=== PATIENT | male | born 1935 | race Caucasian/White ===

== ENCOUNTER 2016-06-22 17:31 | Emergency (ER) | payer MEDICARE ==
[2016-06-22 17:45] VITALS: RESP 18; TEMP 98.2
[2016-06-22] MEDS ORDERED: Sodium Chloride 0.9% 500 ML IV ONE (18:18)
[2016-06-22] MEDS ORDERED: Atropine-Diphenoxylate 0.025-2.5 mg Tab PO STA (18:19)
--- NOTE | 2016-06-22 18:19 | C.PDOC ---
History Of Present Illness 80-year-old male, presents to the emergency department with complaints of non- bloody diarrhea today, that has now resolved. Pt notes multiple episodes of watery bowel movement, that resolved 3-4 hours ago. Associated symptoms include generalized abdominal pain, which was severe, and has now resolved. Currently complaining of bloating. No fever, nausea/vomiting. Pt with sick contacts at home w/ similar symptoms. DIARRHEA TODAY, NOW RESOLVED. MULT WATERY BM, RESOLVED X 3-4 HRS. +ASSOC GEN ABD PAIN "SEVERE" NOW RESOLVED. CURRENTLY CO BLOATING. NO FEVER, NV, SICK CONTACTS W SAME. PSH NEG EXAM ABD SOFT NT MILD DISTENTION NO R/G REMAINDER NEG Time Seen by Provider: 06/22/16 17:54 Chief Complaint (Nursing): Abdominal Pain History Per: Patient History/Exam Limitations: no limitations Onset/Duration Of Symptoms: Days Current Symptoms Are (Timing): Still Present Severity: Moderate Past Medical History Reviewed: Historical Data, Nursing Documentation, Vital Signs Vital Signs: Last Vital Signs Temp 98.2 F 06/22/16 17:41 Pulse 70 06/22/16 20:40 Resp 18 06/22/16 18:18 BP 130/63 06/22/16 20:40 Pulse Ox 98 06/22/16 20:40 - Medical History PMH: HTN, Hypothyroidism Family History: States: Unknown Family Hx - Social History Hx Alcohol Use: No Hx Substance Use: No - Immunization History Hx Tetanus Toxoid Vaccination: No Hx Influenza Vaccination: No Hx Pneumococcal Vaccination: Yes Review Of Systems Except As Marked, All Systems Reviewed And Found Negative. Constitutional: Negative for: Fever, Chills Respiratory: Negative for: Shortness of Breath Gastrointestinal: Positive for: Diarrhea. Negative for: Nausea, Vomiting Musculoskeletal: Negative for: Back Pain Skin: Negative for: Rash Neurological: Negative for: Weakness, Numbness Physical Exam - Physical Exam Appears: Non-toxic, No Acute Distress Skin: Warm, Dry, No Rash Head: Atraumatic, Normacephalic Eye(s): bilateral: Normal Inspection, PERRL Nose: Normal Oral Mucosa: Moist Lips: Normal Appearing Neck: Normal ROM Chest: Symmetrical Cardiovascular: Rhythm Regular Respiratory: No Accessory Muscle Use Gastrointestinal/Abdominal: Soft, No Tenderness, Distention, No Guarding, No Rebound Extremity: Normal ROM Neurological/Psych: Oriented x3, Normal Speech ED Course And Treatment - Laboratory Results Result Diagrams: 06/22/16 18:23 04 18:23 O2 Sat by Pulse Oximetry: 95 Progress - Data Reviewed Data Reviewed: Lab, Old records Disposition - Disposition Referrals: Rosalie Reeves, [Non-Staff] - Disposition: HOME/ ROUTINE Disposition Time: 20:30 Condition: GOOD Additional Instructions: Thank you for letting us take care of you today. You were treated for diarrhea. The emergency medical care you received today was directed at your acute symptoms. If you were prescribed any medication, please fill it and take as directed. It may take several days for your symptoms to resolve. Return to the Emergency Department if your symptoms worsen, do not improve, or if you have any other problems. Please contact your doctor or call one of the physicians/clinics you have been referred to that are listed on the Patient Visit Information form that is included in your discharge packet. Bring any paperwork you were given at discharge with you along with any medications you are taking to your follow up visit. Our treatment cannot replace ongoing medical care by a primary care provider (PCP) outside of the emergency department. Thank you for allowing the [facility] [employer] team to be part of your care today. Follow up with your doctor in 3-4 days to be re-evaluated. Instructions: Dehydration (ED), Acute Diarrhea (ED) - Clinical Impression Clinical Impression: Diarrhea - Scribe Statement The provider has reviewed the documentation as recorded by the Kim Underwood All medical record entries made by the Scribe were at my direction and personally dictated by me. I have reviewed the chart and agree that the record accurately reflects my personal performance of the history, physical exam, medical decision making, and the department course for this patient. I have also personally directed, reviewed, and agree with the discharge instructions and disposition. Physician Patient Turnover Patient Signed Over To: Jcarlos Yeh DO Handoff Comments: IRENE ZAVALA
[2016-06-22] MEDS ORDERED: Atropine-Diphenoxylate 0.025-2.5 mg Tab ONE (18:27)
[2016-06-22] MEDS ORDERED: Sodium Chloride 0.9% 1,000 ML ONE (18:27)
[2016-06-22 18:28] LABS: BASO % 0.1 % (0.0-2.0); EOS # 0.1 K/uL (0.0-0.7); EOS % 1.3 % (0.0-4.0); HEMATOCRIT 46.5 % (35.0-51.0); LYMPH # 2.9 K/uL (1.0-4.3); LYMPH % 25.3 % (20.0-40.0); MEAN CELL VOLUME 84.5 fL (80.0-94.0); MEAN CORPUSCULAR HEMOGLOBIN 26.9 pg (27.0-31.0); MEAN CORPUSCULAR HGB CONC 31.9 g/dL (33.0-37.0); MEAN PLATELET VOLUME 8.7 fL (7.2-11.7); MONO # 0.8 K/uL (0.0-0.8); MONO % 7.4 % (0.0-10.0); WHITE BLOOD COUNT 11.5 K/uL (4.8-10.8)
[2016-06-22 18:35] LABS: POTASSIUM 4.2 mmol/L (3.6-5.2)
[2016-06-22 20:41] VITALS: BP 130/63; PULSE 70
[2016-06-24 09:19] VITALS: O2SAT 95
== END 2016-06-22 20:37 | disposition home or self-care (01) ==
LOC: C.ER 17:31
DX: R19.7 Diarrhea, unspecified (principal)
CPT/HCPCS: 80048; 85025; 96360; 99284; J7040

== ENCOUNTER 2016-06-24 15:01 | Inpatient (IN) | payer MEDICARE ==
[2016-06-24] MEDS ORDERED: Sodium Chloride 0.9% 1,000 ML IV ONE (15:35)
[2016-06-24] MEDS ORDERED: Sodium Chloride 0.9% 1,000 ML ONE (16:11)
--- NOTE | 2016-06-24 16:19 | C.PDOC ---
History Of Present Illness 80-year-old male, presents to the emergency department with complaints of abdominal pain x5 days, that is associated with non-bloody diarrhea. Patient denies nausea/vomiting, fevers, or any other associated symptoms. Pt seen by PMD , who instructed him to come to the ED for further evaluation. No other complaints at this time. Time Seen by Provider: 06/24/16 15:31 Chief Complaint (Nursing): Abdominal Pain History Per: Patient History/Exam Limitations: no limitations Onset/Duration Of Symptoms: Days Current Symptoms Are (Timing): Still Present Severity: Moderate Past Medical History Reviewed: Historical Data, Nursing Documentation, Vital Signs Vital Signs: Last Vital Signs Temp 98.1 F 06/24/16 17:51 Pulse 100 H 06/24/16 17:51 Resp 20 06/24/16 17:51 BP 180/97 H 06/24/16 17:51 Pulse Ox 97 06/24/16 17:51 - Medical History PMH: HTN, Hypothyroidism Family History: States: Unknown Family Hx - Social History Hx Alcohol Use: No Hx Substance Use: No - Immunization History Hx Tetanus Toxoid Vaccination: No Hx Influenza Vaccination: No Hx Pneumococcal Vaccination: Yes Review Of Systems Except As Marked, All Systems Reviewed And Found Negative. Constitutional: Negative for: Fever, Chills Respiratory: Negative for: Shortness of Breath Gastrointestinal: Positive for: Abdominal Pain, Diarrhea. Negative for: Nausea , Vomiting Genitourinary: Negative for: Dysuria, Frequency Skin: Negative for: Rash Neurological: Negative for: Weakness, Numbness, Headache, Dizziness Physical Exam - Physical Exam Appears: Non-toxic, No Acute Distress Skin: Warm, Dry, No Rash Head: Atraumatic, Normacephalic Eye(s): bilateral: Normal Inspection, PERRL Nose: Normal Oral Mucosa: Moist Lips: Normal Appearing Cardiovascular: Rhythm Regular Respiratory: Normal Breath Sounds, No Accessory Muscle Use Gastrointestinal/Abdominal: Soft, No Tenderness, No Guarding, No Rebound Extremity: Normal ROM Neurological/Psych: Oriented x3, Normal Speech ED Course And Treatment - Laboratory Results Result Diagrams: 06/24/16 16:37 06/24/16 16:37 O2 Sat by Pulse Oximetry: 96 Progress Note: CT Abd/Pel. CMP, Lipase, TSH. IVF, Toradol. Blood Culture. Urinalysis. Reassess and Disposition. CT results evaluated. 18 F NG tube placed with Dr Metz. 200 CC removed initially. Case discussed with Dr Hernández agreed upon admission. and pt agreed with Dr Hutchison for surgery consult. Case dsicussed with vice president of engineering, will evaluate pt. Disposition - Disposition Disposition: HOSPITALIZED Disposition Time: 19:00 Condition: STABLE - Clinical Impression Clinical Impression: Small bowel obstruction - Scribe Statement The provider has reviewed the documentation as recorded by the Kim Underwood All medical record entries made by the Kmi were at my direction and personally dictated by me. I have reviewed the chart and agree that the record accurately reflects my personal performance of the history, physical exam, medical decision making, and the department course for this patient. I have also personally directed, reviewed, and agree with the discharge instructions and disposition.
[2016-06-24 16:42] LABS: BASO % 0.3 % (0.0-2.0); EOS # 0.1 K/uL (0.0-0.7); EOS % 1.1 % (0.0-4.0); HEMATOCRIT 40.1 % (35.0-51.0); LYMPH # 1.6 K/uL (1.0-4.3); LYMPH % 26.6 % (20.0-40.0); MEAN CELL VOLUME 84.3 fL (80.0-94.0); MEAN CORPUSCULAR HGB CONC 32.1 g/dL (33.0-37.0); MONO # 0.7 K/uL (0.0-0.8); MONO % 12.3 % (0.0-10.0); NRBC % 0.1 % (0.0-2.0); RED CELL DISTRIBUTION WIDTH 14.5 % (11.5-14.5); WHITE BLOOD COUNT 5.8 K/uL (4.8-10.8)
[2016-06-24 16:46] LABS: RBC URINE 9 /hpf (0-3); URINE BACTERIA RARE (<OCC); URINE BILIRUBIN NEGATIVE (NEGATIVE); URINE BLOOD 1+ (NEGATIVE); URINE CALCIUM OXALATE CRYSTALS FEW /hpf (<OCC); URINE COLOR Amber (YELLOW); URINE GLUCOSE (UA) NORMAL (Normal); URINE KETONE TRACE mg/dL (NEGATIVE); URINE LEUKOCYTE ESTERASE NEG Leu/uL (Negative); URINE PROTEIN 2+ mg/dL (NEGATIVE); WBC URINE 4 /hpf (0-5)
[2016-06-24 16:58] LABS: CHLORIDE 98 mmol/L (98-107); POTASSIUM 3.6 mmol/L (3.6-5.2); SODIUM 139 mmol/L (132-148)
[2016-06-24 17:00] LABS: GFR AFRICAN-AMERICAN > 60
[2016-06-24 17:01] LABS: ALB/GLOB RATIO 1.4 (1.0-2.1); ALKALINE PHOSPHATASE 53 U/L (38-126); ALT/SGPT 49 U/L (21-72); AST/SGOT 52 U/L (17-59); BILIRUBIN,TOTAL 1.1 mg/dL (0.2-1.3); BLOOD UREA NITROGEN 21 mg/dL (9-20); CARBON DIOXIDE 26 mmol/L (22-30); GLUCOSE,RANDOM 116 mg/dL (75-110); TOTAL PROTEIN 7.2 g/dL (6.3-8.3)
[2016-06-24 17:15] LABS: FREE T4 0.86 ng/dL (0.78-2.19)
[2016-06-24 17:29] LABS: THYROID STIMULATING HORMONE 1.14 mIU/L (0.46-4.68)
[2016-06-24] MEDS ORDERED: Iodixanol 320 MG/ML 100 ML BOTTLE IV ONE (17:42)
--- NOTE | 2016-06-24 18:32 | CT ---
PROCEDURE: CT Abdomen and Pelvis with contrast HISTORY: abd pain COMPARISON: None. TECHNIQUE: Contrast dose: 100 cc of Omnipaque Radiation dose: Total exam DLP = 1049 mGy-cm. This CT exam was performed using one or more of the following dose reduction techniques: Automated exposure control, adjustment of the mA and/or kV according to patient size, and/or use of iterative reconstruction technique. FINDINGS: LOWER THORAX: Unremarkable. LIVER: Unremarkable. No gross lesion or ductal dilatation. GALLBLADDER AND BILE DUCTS: Unremarkable. PANCREAS: Unremarkable. No gross lesion or ductal dilatation. SPLEEN: Unremarkable. ADRENALS: Unremarkable. No mass. KIDNEYS AND URETERS: Unremarkable. No hydronephrosis. No solid mass. VASCULATURE: Unremarkable. No aortic aneurysm. BOWEL: Numerous dilated loops of small bowel throughout the abdomen with collapsed colon consistent with high grade small bowel obstruction. APPENDIX: Normal appendix. PERITONEUM: Unremarkable. No free fluid. No free air. LYMPH NODES: Unremarkable. No enlarged lymph nodes. BLADDER: Unremarkable. REPRODUCTIVE: Brachytherapy seeds in prostate gland.. BONES: No acute fracture. OTHER FINDINGS: None. IMPRESSION: Numerous dilated loops of small bowel throughout the abdomen with collapsed colon consistent with high grade small bowel obstruction. Transition point not definitely identified. No abscess, ascites or pneumoperitoneum.
--- NOTE | 2016-06-24 20:04 | CP.PCM.CON ---
<Thomas Garcias - Last Filed: 06/24/16 19:54> History of Present Illness - History of Present Illness History of Present Illness: General Surgery Consult Re: SBO HPI: 80M presented to ED with 4 days of generalized abdominal pain and bloating associated with non bloody diarrhea. Had 1 small bout of emesis on Friday after some tea. Otherwise no N/V, F/C, SOB, chest pain. This is the first time this has happened to him. Also complains of abdominal distention. Pt has never had any abdominal surgeries but had seed radiation (possibley also external beam ) for prostate CA. He has never had a colonoscopy. PMH: HTN, Hypothyroid, Glaucoma, hard of hearing PSH: R knee surgery SH: No tobacco, EtOH, or drug use All: NKDA Meds: See MAR Review of Systems - Review of Systems All systems: reviewed and no additional remarkable complaints except (as per HPI ) Past Patient History - Past Social History Smoking Status: Never Smoked - CARDIAC Hx Hypertension: Yes - HEENT Hx Deafness: Yes (right meniere's) Hx Glaucoma: Yes Other/Comment: hearing aid - ENDOCRINE/METABOLIC Hx Hypothyroidism: Yes - GENITOURINARY/GYNECOLOGICAL Hx Prostate Cancer: Yes (with seed implant) - PSYCHIATRIC Hx Substance Use: No - SURGICAL HISTORY Hx Surgeries: Yes Other/Comment: cystoscopy, endoscopy - ANESTHESIA Hx Anesthesia: Yes Hx Anesthesia Reactions: No Meds Allergies/Adverse Reactions: Allergies Allergy/AdvReac Type Severity Reaction Status Date / Time No Known Allergies Allergy Unverified 06/24/16 15:08 Physical Exam - Constitutional Appears: Non-toxic, No Acute Distress - Head Exam Head Exam: ATRAUMATIC, NORMOCEPHALIC - Eye Exam Eye Exam: EOMI, PERRL - ENT Exam ENT Exam: Mucous Membranes Dry Additional comments: Trachea midline NGT in place - Respiratory Exam Respiratory Exam: NORMAL BREATHING PATTERN. absent: Respiratory Distress - Cardiovascular Exam Cardiovascular Exam: Tachycardia, +S1, +S2 - GI/Abdominal Exam GI & Abdominal Exam: Distended, Soft, Tenderness (moderate, generalised). absent: Firm, Guarding, Rebound, Rigid - Rectal Exam Rectal Exam: Deferred - Extremities Exam Extremities exam: Positive for: normal capillary refill. Negative for: calf tenderness, pedal edema - Back Exam Back exam: absent: CVA tenderness (L), CVA tenderness (R) - Neurological Exam Neurological exam: Alert, Oriented x3 - Psychiatric Exam Psychiatric exam: Normal Affect, Normal Mood - Skin Skin Exam: Dry, Warm Results - Vital Signs Recent Vital Signs: Last Vital Signs Temp 98.1 F 06/24/16 17:51 Pulse 100 H 06/24/16 18:50 Resp 18 06/24/16 18:50 BP 180/90 H 06/24/16 18:50 Pulse Ox 96 06/24/16 19:00 - Labs Result Diagrams: 06/24/16 16:37 06/24/16 16:37 - Imaging and Cardiology CT scan - abdomen Status: Image reviewed by me, Report reviewed by me Assessment & Plan - Assessment and Plan (Free Text) Assessment: 80M with SBO vs Ileus Plan: NGT in place, will check CXR IVF Analgesia Zofran Continue medical management, no immediate surgical intervention at this time. D/W Dr. Glenda Garcias PGY3 <Abiodun Doshi - Last Filed: 06/25/16 21:35> Meds - Medications Medications: Current Medications Potassium Chloride/Dextrose/Sod Cl (Potassium Chl 20 Meq In D5-1/2ns) 1,000 mls @ 125 mls/hr IV .Q8H [facility] Last Admin: 06/25/16 17:33 Dose: 125 mls/hr Ketorolac Tromethamine (Toradol) 30 mg IVP Q6 PRN PRN Reason: Pain, moderate (4-7) Metoprolol Tartrate (Lopressor) 50 mg PO Q12 [facility] Last Admin: 06/25/16 21:27 Dose: 50 mg Ondansetron HCl (Zofran Inj) 4 mg IVP Q4 PRN PRN Reason: Nausea/Vomiting Pneumococcal Polyvalent Vaccine (Pneumovax 23 Vaccine) 0.5 ml IM .ONCE ONE Stop: 06/26/16 10:01 Results - Vital Signs Recent Vital Signs: Last Vital Signs Temp 98.3 F 06/25/16 21:28 Pulse 86 06/25/16 21:28 Resp 20 06/25/16 15:00 BP 153/86 H 06/25/16 21:28 Pulse Ox 97 06/25/16 21:28 - Labs Result Diagrams: 06/25/16 07:35 06/25/16 07:35 Labs: Laboratory Results - last 24 hr 06/25/16 06/25/16 07:35 11:09 WBC 4.8 RBC 4.52 Hgb 12.2 Hct 38.0 MCV 84.0 MCH 26.9 L MCHC 32.0 L RDW 14.7 H Plt Count 253 MPV 8.2 Neut % (Auto) 66.3 Lymph % (Auto) 20.4 [place] % (Auto) 11.7 H Eos % (Auto) 1.4 Baso % (Auto) 0.2 Neut # 3.2 Lymph # 1.0 [place] # 0.6 Eos # 0.1 Baso # 0.0 Sodium 141 Potassium 4.0 Chloride 102 Carbon Dioxide 23 Anion Gap 20 BUN 21 H Creatinine 1.1 Est GFR ( Amer) > 60 Est GFR (Non-Af Amer) > 60 Random Glucose 102 Lactic Acid 1.4 Calcium 8.2 L Total Bilirubin 1.1 AST 33 ALT 46 Alkaline Phosphatase 47 Total Protein 6.5 Albumin 3.7 Globulin 2.8 Albumin/Globulin Ratio 1.3 Attending/Attestation - Attestation I have personally seen and examined this patient.: Yes I have fully participated in the care of the patient.: Yes I have reviewed all pertinent clinical information: Yes Notes (Text): 06/25/16 21:34 Pt was seen and examined at bedside on 06/25/2016 Agree with above note and assessment Pt with PSBO due to Enteritis/Colitis Serial abdominal exam OLLIE NICOLE NPO Plan d.w pt in detail We will f.u.
[2016-06-24] MEDS: Sodium Chloride 0.9% 1,000 ML IV SCH (21:14)
[2016-06-24] MEDS ORDERED: Metoprolol 1 mg/ml Inj IVP SCH (22:00)
[2016-06-25] MEDS: Sodium Chloride 0.9% 1,000 ML IV SCH (06:17)
[2016-06-25 07:57] LABS: BASO % 0.2 % (0.0-2.0); EOS # 0.1 K/uL (0.0-0.7); EOS % 1.4 % (0.0-4.0); LYMPH % 20.4 % (20.0-40.0); MEAN CORPUSCULAR HEMOGLOBIN 26.9 pg (27.0-31.0); MEAN PLATELET VOLUME 8.2 fL (7.2-11.7); MONO # 0.6 K/uL (0.0-0.8); MONO % 11.7 % (0.0-10.0); NRBC % 0.1 % (0.0-2.0); RED CELL DISTRIBUTION WIDTH 14.7 % (11.5-14.5); WHITE BLOOD COUNT 4.8 K/uL (4.8-10.8)
[2016-06-25 08:09] LABS: CHLORIDE 102 mmol/L (98-107); SODIUM 141 mmol/L (132-148)
[2016-06-25 08:11] LABS: GFR AFRICAN-AMERICAN > 60
[2016-06-25 08:12] LABS: ALB/GLOB RATIO 1.3 (1.0-2.1); ALKALINE PHOSPHATASE 47 U/L (38-126); ALT/SGPT 46 U/L (21-72); AST/SGOT 33 U/L (17-59); BILIRUBIN,TOTAL 1.1 mg/dL (0.2-1.3); BLOOD UREA NITROGEN 21 mg/dL (9-20); CARBON DIOXIDE 23 mmol/L (22-30); GLUCOSE,RANDOM 102 mg/dL (75-110); TOTAL PROTEIN 6.5 g/dL (6.3-8.3)
[2016-06-25 08:13] LABS: CALCIUM 8.2 mg/dl (8.6-10.4)
--- NOTE | 2016-06-25 08:43 | RAD ---
HISTORY: NGT placement COMPARISON: No prior. FINDINGS: LUNGS: NG tube extending into the stomach. Dense linear atelectasis at the left lung base. Prominent patchy increased markings at both lung bases. Small bilateral pleural effusions. Venous congestion. PLEURA: As above. CARDIOVASCULAR: Cardiomegaly. OSSEOUS STRUCTURES: Degenerative changes in the spine with paravertebral osteophytes. VISUALIZED UPPER ABDOMEN: Normal. OTHER FINDINGS: None. IMPRESSION: NG tube extending into the stomach. Dense linear atelectasis at the left lung base. Prominent patchy increased markings at both lung bases. Small bilateral pleural effusions. Venous congestion.
--- NOTE | 2016-06-25 10:39 | CP.PCM.PN ---
<Jennifer Weathers - Last Filed: 06/25/16 16:13> Subjective - Date & Time of Evaluation Date of Evaluation: 06/25/16 Time of Evaluation: 07:00 - Subjective Subjective: GENERAL SURGERY PROGRESS NOTE FOR DR. DOSHI Patient seen and examined at bedside. He is passing flatus and his last BM was yesterday. NG tube in place on suction. He is NPO and denies nausea or vomiting. Has mild diffuse abdominal pain. Objective - Vital Signs/Intake and Output Vital Signs (last 24 hours): Temp Pulse Resp BP Pulse Ox 98.5 F 70 20 156/72 H 96 06/25/16 07:42 06/25/16 07:42 06/25/16 07:42 06/25/16 07:42 06/25/16 07:42 Intake and Output: 06/25/16 06/25/16 06:59 18:59 Intake Total 1000 Output Total 300 Balance 700 - Medications Medications: Current Medications Sodium Chloride (Sodium Chloride 0.9%) 1,000 mls @ 120 mls/hr IV .Q8H20M [facility] Last Admin: 06/25/16 06:17 Dose: 120 mls/hr Ketorolac Tromethamine (Toradol) 30 mg IVP Q6 PRN PRN Reason: Pain, moderate (4-7) Metoprolol Tartrate (Lopressor) 50 mg PO Q12 [facility] Last Admin: 06/25/16 10:05 Dose: 50 mg Ondansetron HCl (Zofran Inj) 4 mg IVP Q4 PRN PRN Reason: Nausea/Vomiting Pneumococcal Polyvalent Vaccine (Pneumovax 23 Vaccine) 0.5 ml IM .ONCE ONE Stop: 06/26/16 10:01 - Labs Labs: 06/25/16 07:35 06/25/16 07:35 - Constitutional Appears: Non-toxic, No Acute Distress - Head Exam Head Exam: ATRAUMATIC, NORMAL INSPECTION - Eye Exam Eye Exam: EOMI, Normal appearance - Respiratory Exam Respiratory Exam: NORMAL BREATHING PATTERN. absent: Respiratory Distress - Cardiovascular Exam Cardiovascular Exam: +S1, +S2 - GI/Abdominal Exam GI & Abdominal Exam: Distended, Soft, Tenderness (mild tenderness periumbilical ). absent: Firm, Guarding, Rigid, Rebound - Neurological Exam Neurological Exam: Alert, Awake, Oriented x3 - Psychiatric Exam Psychiatric exam: Normal Affect, Normal Mood - Skin Skin Exam: Dry, Normal Color, Warm Assessment and Plan - Assessment and Plan (Free Text) Assessment: 80yo M with SBO vs Ileus - Afebrile, tachycardia yesterday now resolved - NG tube in place on suction with 300cc output since insertion yesterday - Passing flatus - Will continue conservative management, no urgent surgical intervention needed at this time - Lactic acid WNL - Discussed plan with Dr. Glenda Weathers PGY-2 <Abiodun Doshi - Last Filed: 06/25/16 21:36> Objective - Vital Signs/Intake and Output Vital Signs (last 24 hours): Temp Pulse Resp BP Pulse Ox 98.3 F 86 20 153/86 H 97 06/25/16 21:28 06/25/16 21:28 06/25/16 15:00 06/25/16 21:28 06/25/16 21:28 Intake and Output: 06/25/16 06/26/16 18:59 06:59 Intake Total 1020 Output Total 650 Balance 370 - Medications Medications: Current Medications Potassium Chloride/Dextrose/Sod Cl (Potassium Chl 20 Meq In D5-1/2ns) 1,000 mls @ 125 mls/hr IV .Q8H [facility] Last Admin: 06/25/16 17:33 Dose: 125 mls/hr Ketorolac Tromethamine (Toradol) 30 mg IVP Q6 PRN PRN Reason: Pain, moderate (4-7) Metoprolol Tartrate (Lopressor) 50 mg PO Q12 [facility] Last Admin: 06/25/16 21:27 Dose: 50 mg Ondansetron HCl (Zofran Inj) 4 mg IVP Q4 PRN PRN Reason: Nausea/Vomiting Pneumococcal Polyvalent Vaccine (Pneumovax 23 Vaccine) 0.5 ml IM .ONCE ONE Stop: 06/26/16 10:01 - Labs Labs: 06/25/16 07:35 06/25/16 07:35 Attending/Attestation - Attestation I have personally seen and examined this patient.: Yes I have fully participated in the care of the patient.: Yes I have reviewed all pertinent clinical information, including history, physical exam and plan: Yes Notes (Text): 06/25/16 21:35 Pt was seen and examined at bedside on 06/25/2016 Agree with above note and assessment Pt with PSBO due to Enteritis/Colitis Serial abdominal exam NG to COREY NPO
--- NOTE | 2016-06-25 10:55 | CP.PCM.HP ---
History of Present Illness - History of Present Illness History of Present Illness: 80 years old male complaining of abdominal distention and diffuse abdominal pain with poor appetite, nausea for the past 4 days. He was seen in the ED at [facility] 2 days ago for the same complaints, vomiting x1, and diarrhea. He denies any fever, any bloody stools. This time, a CT scan of the abdomen reveals a small bowel obstruction. An NGT tube was inserted and put in low intermittent suction. Present on Admission - Present on Admission Any Indicators Present on Admission: No Review of Systems - Gastrointestinal Gastrointestinal: Abdominal Pain, Bloating, Diarrhea, Nausea, Vomiting Past Patient History - Infectious Disease Hx of Infectious Diseases: None - Tetanus Immunizations Tetanus Immunization: Unknown - Past Medical History & Family History Past Medical History?: Yes - Past Social History Smoking Status: Never Smoked Alcohol: None Drugs: Denies Home Situation {Lives}: With Family Domestic Violence: Negative - CARDIAC Hx Cardiac Disorders: Yes Hx Hypertension: Yes - PULMONARY Hx Respiratory Disorders: No - NEUROLOGICAL Hx Neurological Disorder: No - HEENT Hx HEENT Problems: Yes Hx Deafness: Yes (right meniere's) Hx Glaucoma: Yes Other/Comment: hearing aid - RENAL Hx Chronic Kidney Disease: No - ENDOCRINE/METABOLIC Hx Endocrine Disorders: Yes Hx Hypothyroidism: Yes - HEMATOLOGICAL/ONCOLOGICAL Hx Blood Disorders: No - INTEGUMENTARY Hx Dermatological Problems: No - MUSCULOSKELETAL/RHEUMATOLOGICAL Hx Musculoskeletal Disorders: Yes Hx Falls: No Other/Comment: knee problem - GASTROINTESTINAL Hx Gastrointestinal Disorders: No - GENITOURINARY/GYNECOLOGICAL Hx Genitourinary Disorders: Yes Hx Prostate Cancer: Yes ( about 10years ago.) - PSYCHIATRIC Hx Psychophysiologic Disorder: No Hx Substance Use: No - SURGICAL HISTORY Hx Surgeries: Yes Other/Comment: cystoscopy, endoscopy - ANESTHESIA Hx Anesthesia: Yes Hx Anesthesia Reactions: No Hx Malignant Hyperthermia: No Has any member of the family had a problem w/ anesthesia?: No Meds Allergies/Adverse Reactions: Allergies Allergy/AdvReac Type Severity Reaction Status Date / Time No Known Allergies Allergy Unverified 06/24/16 15:08 Physical Exam - Constitutional Appears: No Acute Distress - Head Exam Head Exam: NORMAL INSPECTION - Eye Exam Eye Exam: Normal appearance - ENT Exam ENT Exam: Normal Exam - Neck Exam Neck exam: Positive for: Normal Inspection - Respiratory Exam Respiratory Exam: Clear to Auscultation Bilateral - Cardiovascular Exam Cardiovascular Exam: REGULAR RHYTHM - GI/Abdominal Exam GI & Abdominal Exam: Distended, Hypoactive Bowel Sounds, Rebound, Tenderness - Rectal Exam Rectal Exam: Deferred - Exam Exam: NORMAL INSPECTION - Extremities Exam Extremities exam: Positive for: normal inspection - Back Exam Back exam: NORMAL INSPECTION - Neurological Exam Neurological exam: Alert, Normal Gait, Oriented x3, Reflexes Normal - Psychiatric Exam Psychiatric exam: Anxious - Skin Skin Exam: Dry, Intact, Normal Color, Warm Results - Vital Signs Recent Vital Signs: Last Vital Signs Temp 98.5 F 06/25/16 07:42 Pulse 70 06/25/16 07:42 Resp 20 06/25/16 07:42 BP 156/72 H 06/25/16 07:42 Pulse Ox 96 06/25/16 07:42 - Labs Result Diagrams: 06/25/16 07:35 06/25/16 07:35 Labs: Laboratory Results - last 24 hr 06/25/16 07:35 WBC 4.8 RBC 4.52 Hgb 12.2 Hct 38.0 MCV 84.0 MCH 26.9 L MCHC 32.0 L RDW 14.7 H Plt Count 253 MPV 8.2 Neut % (Auto) 66.3 Lymph % (Auto) 20.4 [place] % (Auto) 11.7 H Eos % (Auto) 1.4 Baso % (Auto) 0.2 Neut # 3.2 Lymph # 1.0 [place] # 0.6 Eos # 0.1 Baso # 0.0 Sodium 141 Potassium 4.0 Chloride 102 Carbon Dioxide 23 Anion Gap 20 BUN 21 H Creatinine 1.1 Est GFR ( Amer) > 60 Est GFR (Non-Af Amer) > 60 Random Glucose 102 Calcium 8.2 L Total Bilirubin 1.1 AST 33 ALT 46 Alkaline Phosphatase 47 Total Protein 6.5 Albumin 3.7 Globulin 2.8 Albumin/Globulin Ratio 1.3 Assessment & Plan (1) Small bowel obstruction Assessment and Plan: Surgical evaluation. To continue NGT suction. Status: Acute (2) Uncontrolled hypertension Assessment and Plan: To continue Metoprolol 50 mg BID through NGT. Status: Acute Decision To Admit - Pt Status Changed To: Hospital Disposition Of: Inpatient - Admit Certification Admit to Inpatient:: After my assessment, the patient will require hospitalization for at least two midnights. This is because of the severity of symptoms shown, intensity of services needed, and/or the medical risk in this patient being treated as an outpatient. - InPatient: Physician Admission Certification:: After my assessments, the patient requires hospitalization for at least 2 midnights. - . Bed Request Type: Regular Admitting Physician: Jcarlos Hernández
[2016-06-25] MEDS ORDERED: Potassium Ch 20mEq in D5-1/2NS 1,000 ML IV SCH (17:15)
[2016-06-25] MEDS ORDERED: Dextrose 5%/0.45% NS 1,000 ML IV SCH (17:30)
[2016-06-25] MEDS: Potassium Ch 20mEq in D5-1/2NS 1,000 ML IV SCH (17:33)
--- NOTE | 2016-06-25 17:36 | CP.PCM.PN ---
Subjective - Date & Time of Evaluation Date of Evaluation: 06/25/16 Time of Evaluation: 17:32 - Subjective Subjective: Patient still with bilateral lower quadrant abdominal pain. Passed flatuses but no solid stools. NGT draining about 1500 ml of greenish liquid. CBC and CMP are WNL. Review of CT scan of the abdomen and pelvis reveals a narrowing of the ileum. Will seek an evaluation with GI ( Dr Minor). Dr Minor advised to order an obstructive series to assess the SBO. Objective - Vital Signs/Intake and Output Vital Signs (last 24 hours): Temp Pulse Resp BP Pulse Ox 98.2 F 91 H 20 173/89 H 95 06/25/16 15:00 06/25/16 15:00 06/25/16 15:00 06/25/16 15:00 06/25/16 15:00 Intake and Output: 06/25/16 06/25/16 06:59 18:59 Intake Total 1000 1020 Output Total 300 650 Balance 700 370 - Medications Medications: Current Medications Potassium Chloride/Dextrose/Sod Cl (Potassium Chl 20 Meq In D5-1/2ns) 1,000 mls @ 125 mls/hr IV .Q8H [facility] Ketorolac Tromethamine (Toradol) 30 mg IVP Q6 PRN PRN Reason: Pain, moderate (4-7) Metoprolol Tartrate (Lopressor) 50 mg PO Q12 [facility] Last Admin: 06/25/16 10:05 Dose: 50 mg Ondansetron HCl (Zofran Inj) 4 mg IVP Q4 PRN PRN Reason: Nausea/Vomiting Pneumococcal Polyvalent Vaccine (Pneumovax 23 Vaccine) 0.5 ml IM .ONCE ONE Stop: 06/26/16 10:01 - Labs Labs: 06/25/16 07:35 06/25/16 07:35 - Constitutional Appears: No Acute Distress - Head Exam Head Exam: NORMAL INSPECTION - Eye Exam Eye Exam: Normal appearance - ENT Exam ENT Exam: Normal Exam - Neck Exam Neck Exam: Normal Inspection - Respiratory Exam Additional comments: Few rhonchi both bases. - GI/Abdominal Exam GI & Abdominal Exam: Distended, Tenderness, Hypoactive Bowel Sounds Additional comments: Mild tenderness of the RLQ and LLQ. No rebound. - Extremities Exam Extremities Exam: Normal Inspection - Back Exam Back Exam: NORMAL INSPECTION - Neurological Exam Neurological Exam: Alert, Awake, Oriented x3 - Psychiatric Exam Psychiatric exam: Anxious - Skin Skin Exam: Dry, Intact, Normal Color, Warm Assessment and Plan (1) Small bowel obstruction Assessment & Plan: Better with flatus. To order an obstructive series. Status: Acute (2) Uncontrolled hypertension Assessment & Plan: To continue Metoprolol 50 mg via NGT BID. Status: Acute
[2016-06-26] MEDS: Potassium Ch 20mEq in D5-1/2NS 1,000 ML IV SCH ×4 (01:03→20:51)
[2016-06-26 07:30] LABS: BASO % 0.1 % (0.0-2.0); EOS # 0.1 K/uL (0.0-0.7); HEMATOCRIT 38.5 % (35.0-51.0); LYMPH # 1.7 K/uL (1.0-4.3); LYMPH % 27.4 % (20.0-40.0); MEAN CELL VOLUME 84.3 fL (80.0-94.0); MEAN CORPUSCULAR HEMOGLOBIN 27.3 pg (27.0-31.0); MEAN CORPUSCULAR HGB CONC 32.4 g/dL (33.0-37.0); MEAN PLATELET VOLUME 8.2 fL (7.2-11.7); MONO # 0.7 K/uL (0.0-0.8); RED CELL DISTRIBUTION WIDTH 14.4 % (11.5-14.5)
[2016-06-26 07:51] LABS: CHLORIDE 102 mmol/L (98-107)
[2016-06-26 07:52] LABS: POTASSIUM 3.6 mmol/L (3.6-5.2); SODIUM 140 mmol/L (132-148)
[2016-06-26 07:56] LABS: ALB/GLOB RATIO 1.3 (1.0-2.1); ALKALINE PHOSPHATASE 53 U/L (38-126); ALT/SGPT 41 U/L (21-72); AST/SGOT 34 U/L (17-59); BILIRUBIN,TOTAL 1.2 mg/dL (0.2-1.3); BLOOD UREA NITROGEN 17 mg/dL (9-20); CALCIUM 8.1 mg/dl (8.6-10.4); CARBON DIOXIDE 22 mmol/L (22-30); GFR AFRICAN-AMERICAN > 60; GLUCOSE,RANDOM 123 mg/dL (75-110); TOTAL PROTEIN 6.8 g/dL (6.3-8.3)
[2016-06-26] MEDS ORDERED: Potassium Chloride 20 mEq 100 ML IVPB ONE (08:00)
[2016-06-26] MEDS ORDERED: Pneumococcal 23-Valent Vaccine IM ONE (10:00)
[2016-06-26] MEDS: Potassium Chloride 10 mEq 100 ML IVPB SCH ×2 (10:00→11:19)
--- NOTE | 2016-06-26 10:29 | CP.PCM.PN ---
<Jennifer Weathers - Last Filed: 06/26/16 16:22> Subjective - Date & Time of Evaluation Date of Evaluation: 06/26/16 Time of Evaluation: 07:00 - Subjective Subjective: GENERAL SURGERY PROGRESS NOTE FOR DR. DOSHI Patient seen and examined at bedside. He has not passed flatus or had a BM. NG tube in place on suction. There were 350cc output from the NG tube over the overnight houseperson per the nurse. He is NPO and denies nausea or vomiting. Has mild diffuse abdominal pain. He also reports back pain. He has not been ambulating. He was strongly encouraged to walk as this will help resolve his obstruction. He is able to be disconnected from suction while he walks and then hooked back up once he is back in bed. Objective - Vital Signs/Intake and Output Vital Signs (last 24 hours): Temp Pulse Resp BP Pulse Ox 98.2 F 78 20 180/95 H 96 06/26/16 07:26 06/26/16 07:26 06/26/16 07:26 06/26/16 07:26 06/26/16 07:26 Intake and Output: 06/26/16 06/26/16 06:59 18:59 Intake Total 1000 Output Total 1150 Balance -150 - Medications Medications: Current Medications Potassium Chloride/Dextrose/Sod Cl (Potassium Chl 20 Meq In D5-1/2ns) 1,000 mls @ 125 mls/hr IV .Q8H [facility] Last Admin: 06/26/16 01:03 Dose: 125 mls/hr Potassium Chloride (Potassium Chloride 10 Meq/100 Ml) 100 mls @ 100 mls/hr IVPB Q1 [facility] Stop: 06/26/16 11:59 Ketorolac Tromethamine (Toradol) 30 mg IVP Q6 PRN PRN Reason: Pain, moderate (4-7) Last Admin: 06/26/16 00:59 Dose: 30 mg Metoprolol Tartrate (Lopressor) 50 mg PO Q12 [facility] Last Admin: 06/25/16 21:27 Dose: 50 mg Ondansetron HCl (Zofran Inj) 4 mg IVP Q4 PRN PRN Reason: Nausea/Vomiting - Labs Labs: 06/26/16 07:10 06/26/16 07:10 - Constitutional Appears: Non-toxic, No Acute Distress - Head Exam Head Exam: ATRAUMATIC, NORMAL INSPECTION - Eye Exam Eye Exam: EOMI, Normal appearance - Respiratory Exam Respiratory Exam: NORMAL BREATHING PATTERN. absent: Respiratory Distress - Cardiovascular Exam Cardiovascular Exam: +S1, +S2 - GI/Abdominal Exam GI & Abdominal Exam: Distended, Soft, Tenderness (mild tenderness diffusely). absent: Firm, Guarding, Rigid, Rebound Additional comments: NG tube in place with 350cc output over overnight houseperson with 900cc output over past 24 hours - Neurological Exam Neurological Exam: Alert, Awake - Psychiatric Exam Psychiatric exam: Normal Affect, Normal Mood - Skin Skin Exam: Dry, Warm Assessment and Plan - Assessment and Plan (Free Text) Assessment: 80yo M with partial SBO secondary to enteritis/colitis - Afebrile, VSS - NG tube in place on suction with 350cc output over overnight houseperson and 900cc total over past 24 hours - Continue NG tube on low intermittent suction - Passed flatus yesterday - GI consulted - Obstructive series done, shows SBO - Ordered tap water enema - Want to keep K above 4, gave 2 runs of IV KCl as K was 3.6 today - Discussed plan with Dr. Glenda Weathers PGY-2 <Abiodun Doshi - Last Filed: 06/26/16 17:54> Objective - Vital Signs/Intake and Output Vital Signs (last 24 hours): Temp Pulse Resp BP Pulse Ox 97.8 F 70 21 199/79 H 95 06/26/16 15:00 06/26/16 15:00 06/26/16 15:00 06/26/16 15:00 06/26/16 15:00 Intake and Output: 06/26/16 06/26/16 06:59 18:59 Intake Total 1000 1020 Output Total 1150 300 Balance -150 720 - Medications Medications: Current Medications Potassium Chloride/Dextrose/Sod Cl (Potassium Chl 20 Meq In D5-1/2ns) 1,000 mls @ 125 mls/hr IV .Q8H [facility] Last Admin: 06/26/16 13:45 Dose: Not Given Ketorolac Tromethamine (Toradol) 30 mg IVP Q6 PRN PRN Reason: Pain, moderate (4-7) Last Admin: 06/26/16 00:59 Dose: 30 mg Metoprolol Tartrate (Lopressor) 50 mg PO Q12 [facility] Last Admin: 06/26/16 11:15 Dose: 50 mg Ondansetron HCl (Zofran Inj) 4 mg IVP Q4 PRN PRN Reason: Nausea/Vomiting - Labs Labs: 06/26/16 07:10 06/26/16 07:10 Attending/Attestation - Attestation I have personally seen and examined this patient.: Yes I have fully participated in the care of the patient.: Yes I have reviewed all pertinent clinical information, including history, physical exam and plan: Yes Notes (Text): 06/26/16 17:53 06/24/16 21:16 Pt was seen and examined at bedside on 06/26/16 Agree with above note and assessment Pt with PSBO Observation with Serial abdominal exam Enema Q hours Repeat AXR in am Plan victoriaw pt in detail.
--- NOTE | 2016-06-26 12:55 | RAD ---
PROCEDURE: Radiographs of the chest and abdomen (obstructive series) HISTORY: Small bowel obstruction F/U COMPARISON: CT abdomen and pelvis from 06/24/2016 TECHNIQUE: AP radiograph of the chest, with upright and supine radiographs of the abdomen. FINDINGS: The nasogastric tube terminates in the stomach. CHEST: Lungs: There is bibasilar atelectasis/ scarring and discoid atelectasis/ scarring in the left mid lung. Cardiovascular: Normal size heart. Atherosclerotic aortic arch calcifications are present. No pulmonary vascular congestion. Pleura: No pleural fluid. No pneumothorax. Other findings: None. ABDOMEN AND PELVIS: Bowel: There are differential air-fluid levels in the abdomen and persistent distention of the small bowel loops. Free air: None. Bones: Unremarkable. Other findings: None. IMPRESSION: Persistent dilatation of the small bowel loops with differential as fluid levels consistent with acute small bowel obstruction.
--- NOTE | 2016-06-26 17:51 | CP.PCM.CON ---
History of Present Illness - History of Present Illness History of Present Illness: This is a 80 year old man with abdominal distention and pain. Patient was admitted 06/24/2016 with a four day history of diffuse, vague abdominal pain, distention of the abdomen and diarrhea. He was also nauseated and vomited once. He denies having fever or rectal bleeding. He was seen once in the ER and released; on the second ER visit, a CT scan was obtained which showed a small bowel obstruction. He denies having previous abdominal surgery. An NG tube was inserted, but the abdominal distention has not improved in the past 24 hours. Review of Systems - Gastrointestinal Gastrointestinal: Abdominal Pain, Diarrhea, Nausea, Vomiting. absent: Dysphagia , Heartburn, Hematochezia Past Patient History - Infectious Disease Hx of Infectious Diseases: None - Tetanus Immunizations Tetanus Immunization: Unknown - Past Medical History & Family History Past Medical History?: Yes - Past Social History Smoking Status: Never Smoked Alcohol: None Drugs: Denies Home Situation {Lives}: With Family Domestic Violence: Negative - CARDIAC Hx Hypertension: Yes - PULMONARY Hx Respiratory Disorders: No - NEUROLOGICAL Hx Neurological Disorder: No - HEENT Hx HEENT Problems: Yes Hx Deafness: Yes (right meniere's) Hx Glaucoma: Yes Other/Comment: hearing aid - RENAL Hx Chronic Kidney Disease: No - ENDOCRINE/METABOLIC Hx Hypothyroidism: Yes - HEMATOLOGICAL/ONCOLOGICAL Hx Blood Disorders: No - INTEGUMENTARY Hx Dermatological Problems: No - MUSCULOSKELETAL/RHEUMATOLOGICAL Hx Musculoskeletal Disorders: Yes Hx Falls: No Other/Comment: knee problem - GASTROINTESTINAL Hx Gastrointestinal Disorders: No - GENITOURINARY/GYNECOLOGICAL Hx Genitourinary Disorders: Yes Hx Prostate Cancer: Yes ( about 10years ago.) - PSYCHIATRIC Hx Psychophysiologic Disorder: No Hx Substance Use: No - SURGICAL HISTORY Hx Surgeries: Yes Other/Comment: cystoscopy, endoscopy - ANESTHESIA Hx Anesthesia: Yes Hx Anesthesia Reactions: No Hx Malignant Hyperthermia: No Has any member of the family had a problem w/ anesthesia?: No Meds Allergies/Adverse Reactions: Allergies Allergy/AdvReac Type Severity Reaction Status Date / Time No Known Allergies Allergy Unverified 06/24/16 15:08 - Medications Medications: Current Medications Potassium Chloride/Dextrose/Sod Cl (Potassium Chl 20 Meq In D5-1/2ns) 1,000 mls @ 125 mls/hr IV .Q8H [facility] Last Admin: 06/26/16 13:45 Dose: Not Given Ketorolac Tromethamine (Toradol) 30 mg IVP Q6 PRN PRN Reason: Pain, moderate (4-7) Last Admin: 06/26/16 00:59 Dose: 30 mg Metoprolol Tartrate (Lopressor) 50 mg PO Q12 [facility] Last Admin: 06/26/16 11:15 Dose: 50 mg Ondansetron HCl (Zofran Inj) 4 mg IVP Q4 PRN PRN Reason: Nausea/Vomiting Physical Exam - Constitutional Appears: No Acute Distress - Head Exam Head Exam: ATRAUMATIC - Eye Exam Eye Exam: EOMI, PERRL - Neck Exam Neck exam: Negative for: Lymphadenopathy, Thyromegaly - Respiratory Exam Respiratory Exam: NORMAL BREATHING PATTERN. absent: Rales, Rhonchi, Wheezes - Cardiovascular Exam Cardiovascular Exam: REGULAR RHYTHM, +S1, +S2. absent: Gallop, Rubs, Systolic Murmur - GI/Abdominal Exam GI & Abdominal Exam: Distended, Hypoactive Bowel Sounds, Soft. absent: Mass, Organomegaly, Tenderness - Rectal Exam Rectal Exam: Deferred - Extremities Exam Extremities exam: Negative for: calf tenderness, pedal edema Results - Vital Signs Recent Vital Signs: Last Vital Signs Temp 97.8 F 06/26/16 15:00 Pulse 70 06/26/16 15:00 Resp 21 06/26/16 15:00 BP 199/79 H 06/26/16 15:00 Pulse Ox 95 06/26/16 15:00 - Labs Result Diagrams: 06/26/16 07:10 06/26/16 07:10 Labs: Laboratory Results - last 24 hr 06/26/16 07:10 WBC 6.0 RBC 4.57 Hgb 12.5 Hct 38.5 MCV 84.3 MCH 27.3 MCHC 32.4 L RDW 14.4 Plt Count 265 MPV 8.2 Neut % (Auto) 59.5 Lymph % (Auto) 27.4 Isabella % (Auto) 11.0 H Eos % (Auto) 2.0 Baso % (Auto) 0.1 Neut # 3.6 Lymph # 1.7 Isabella # 0.7 Eos # 0.1 Baso # 0.0 Sodium 140 Potassium 3.6 Chloride 102 Carbon Dioxide 22 Anion Gap 20 BUN 17 Creatinine 1.0 Est GFR ( Amer) > 60 Est GFR (Non-Af Amer) > 60 Random Glucose 123 H Calcium 8.1 L Total Bilirubin 1.2 AST 34 ALT 41 Alkaline Phosphatase 53 Total Protein 6.8 Albumin 3.9 Globulin 2.9 Albumin/Globulin Ratio 1.3 Assessment & Plan (1) Small bowel obstruction Assessment and Plan: Patient has SBO which has not improved appreciably since admission despite NG suction. Recommend surgery re-evaluation. Status: Acute
[2016-06-26] MEDS ORDERED: Ciprofloxacin 400mg/200ml D5W 200 ML IVPB SCH (18:30)
[2016-06-26] MEDS: Ciprofloxacin 400mg/200ml D5W 200 ML IVPB SCH (20:47)
--- NOTE | 2016-06-26 21:12 | CP.PCM.PN ---
Subjective - Date & Time of Evaluation Date of Evaluation: 06/26/16 Time of Evaluation: 21:10 - Subjective Subjective: Patient had a large BM this evening after an enema. Feels better, with less abdominal pain. Has been passing flatus after the BM. Will receive another enema in one hour. Will repeat obstructive series in AM. Objective - Vital Signs/Intake and Output Vital Signs (last 24 hours): Temp Pulse Resp BP Pulse Ox 97.8 F 70 21 199/79 H 95 06/26/16 15:00 06/26/16 15:00 06/26/16 15:00 06/26/16 15:00 06/26/16 15:00 Intake and Output: 06/26/16 06/27/16 18:59 06:59 Intake Total 1020 Output Total 300 Balance 720 - Medications Medications: Current Medications Potassium Chloride/Dextrose/Sod Cl (Potassium Chl 20 Meq In D5-1/2ns) 1,000 mls @ 125 mls/hr IV .Q8H [facility] Last Admin: 06/26/16 20:51 Dose: Not Given Metronidazole (Flagyl) 100 mls @ 100 mls/hr IVPB Q8 [facility] Ciprofloxacin (Cipro 400mg/200ml Dsw) 200 mls @ 133 mls/hr IVPB Q12H [facility] Last Admin: 06/26/16 20:47 Dose: 133 mls/hr Metoprolol Tartrate (Lopressor) 50 mg PO Q12 [facility] Last Admin: 06/26/16 11:15 Dose: 50 mg Ondansetron HCl (Zofran Inj) 4 mg IVP Q4 PRN PRN Reason: Nausea/Vomiting Sodium Phosphate (Fleet Enema) 135 ml AL Q8 [facility] - Labs Labs: 06/26/16 07:10 06/26/16 07:10 - Constitutional Appears: No Acute Distress - Head Exam Head Exam: NORMOCEPHALIC - Eye Exam Eye Exam: Normal appearance - ENT Exam ENT Exam: Normal Exam - Neck Exam Neck Exam: Normal Inspection - Respiratory Exam Respiratory Exam: Rhonchi Additional comments: Few rhonchi both bases. - Cardiovascular Exam Cardiovascular Exam: REGULAR RHYTHM - GI/Abdominal Exam GI & Abdominal Exam: Distended, Normal Bowel Sounds Additional comments: RLLQ and LLQ of the abdomen less tender now. - Extremities Exam Extremities Exam: Normal Inspection - Back Exam Back Exam: NORMAL INSPECTION - Neurological Exam Neurological Exam: Alert, Awake, Oriented x3 - Psychiatric Exam Psychiatric exam: Anxious - Skin Skin Exam: Dry, Intact, Normal Color, Warm Assessment and Plan (1) Small bowel obstruction Assessment & Plan: Patient has a BM today. Will have another enema. Repeat obstructive series in AM. Status: Acute (2) Uncontrolled hypertension Assessment & Plan: To continue Metoprolol 50 mg PO BID. Status: Acute
[2016-06-26] MEDS: metroNIDAZOLE IV 500 mg/100 ml 100 ML IVPB SCH (22:44)
[2016-06-27] MEDS: Potassium Ch 20mEq in D5-1/2NS 1,000 ML IV SCH ×3 (01:30→17:44)
[2016-06-27] MEDS: metroNIDAZOLE IV 500 mg/100 ml 100 ML IVPB SCH ×3 (06:05→21:25)
[2016-06-27 08:18] LABS: BASO % 0.2 % (0.0-2.0); EOS # 0.1 K/uL (0.0-0.7); EOS % 1.2 % (0.0-4.0); LYMPH # 1.6 K/uL (1.0-4.3); LYMPH % 23.8 % (20.0-40.0); MEAN CORPUSCULAR HEMOGLOBIN 27.1 pg (27.0-31.0); MEAN CORPUSCULAR HGB CONC 32.3 g/dL (33.0-37.0); MEAN PLATELET VOLUME 8.2 fL (7.2-11.7); MONO # 0.7 K/uL (0.0-0.8); MONO % 9.5 % (0.0-10.0); NRBC % 0.1 % (0.0-2.0); RED CELL DISTRIBUTION WIDTH 14.3 % (11.5-14.5); WHITE BLOOD COUNT 6.8 K/uL (4.8-10.8)
[2016-06-27 08:22] LABS: CHLORIDE 104 mmol/L (98-107); POTASSIUM 3.3 mmol/L (3.6-5.2); SODIUM 141 mmol/L (132-148)
[2016-06-27 08:23] LABS: ALB/GLOB RATIO 1.3 (1.0-2.1); ALKALINE PHOSPHATASE 52 U/L (38-126); ALT/SGPT 40 U/L (21-72); AST/SGOT 33 U/L (17-59); BILIRUBIN,TOTAL 1.1 mg/dL (0.2-1.3); BLOOD UREA NITROGEN 16 mg/dL (9-20); CARBON DIOXIDE 22 mmol/L (22-30); GFR AFRICAN-AMERICAN > 60; GLUCOSE,RANDOM 105 mg/dL (75-110); TOTAL PROTEIN 6.8 g/dL (6.3-8.3)
[2016-06-27 08:24] LABS: PHOSPHOROUS 3.2 mg/dL (2.5-4.5)
[2016-06-27] MEDS: Ciprofloxacin 400mg/200ml D5W 200 ML IVPB SCH ×2 (09:00→20:18)
[2016-06-27] MEDS ORDERED: Potassium Chloride 20 mEq 100 ML IVPB ONE (11:02)
[2016-06-27] MEDS ORDERED: Iohexol 240 (50 ml) PO ONE (12:45)
--- NOTE | 2016-06-27 14:33 | RAD ---
PROCEDURE: Radiographs of the chest and abdomen (obstructive series) HISTORY: Small bowel obstruction follow up. COMPARISON: 02/2017 TECHNIQUE: AP radiograph of the chest, with upright and supine radiographs of the abdomen. FINDINGS: CHEST: Lungs: Clear. Cardiovascular: Mild cardiomegaly. Lateral mid lung zone - subsegmental atelectasis and/or scarring suggested here and similar Possible small left inferolateral pleural effusion thickening versus summation of soft tissues. The obscuration here is increased compared with the prior study. However, x-ray penetration also appears less Pleura: No pneumothorax. Possible minimal left pleural effusion/pleural thickening Other findings: An NG tube is inserted its tip is in the stomach ABDOMEN AND PELVIS: Bowel: The multiple small bowel dilated loops with multiple air-fluid levels are renoted. Compared to the prior study there appears to be increased gas in the right colon and in the hepatic flexure. An intermittent high grade small bowel obstruction is consistent with this. The concern for distal small bowel obstruction has been previously reported. Free air: None. Bones: Unremarkable. Other findings: None. IMPRESSION: The multiple dilated small bowel loops are renoted. Interval increase colonic gas is noted. A high grade partial yet intermittent small bowel obstruction is a consideration. Continued close follow-up recommended. No free air seen
--- NOTE | 2016-06-27 16:20 | CP.PCM.PN ---
<Jennifer Weathers - Last Filed: 06/27/16 16:13> Subjective - Date & Time of Evaluation Date of Evaluation: 06/27/16 Time of Evaluation: 16:00 - Subjective Subjective: GENERAL SURGERY PROGRESS NOTE FOR DR. DOSHI Patient seen and examined at bedside. He had multiple enemas and was able to have bowel movements and pass gas after having them. He states that he had 5-6 bowel movements since this morning. There was 970 cc output from the NG tube over the past 24 hours. He denies any nausea, vomiting but does complain of mild diffuse pain in the abdomen. He has been getting in and out of bed to use the bathroom and was seen sitting on a chair at bedside. He was encouraged to walk since that would help resolve the obstruction. He is able to be disconnected from suction while he walks and then hooked back up once he is back in bed. Objective - Vital Signs/Intake and Output Vital Signs (last 24 hours): Temp Pulse Resp BP Pulse Ox 98.3 F 88 20 184/90 H 97 06/27/16 07:00 06/27/16 07:00 06/27/16 07:00 06/27/16 07:00 06/27/16 07:00 Intake and Output: 06/27/16 06/27/16 06:59 18:59 Intake Total 1250 700 Output Total 1020 340 Balance 230 360 - Medications Medications: Current Medications Potassium Chloride/Dextrose/Sod Cl (Potassium Chl 20 Meq In D5-1/2ns) 1,000 mls @ 125 mls/hr IV .Q8H [facility] Last Admin: 06/27/16 09:00 Dose: 125 mls/hr Metronidazole (Flagyl) 100 mls @ 100 mls/hr IVPB Q8 [facility] Last Admin: 06/27/16 14:35 Dose: 100 mls/hr Ciprofloxacin (Cipro 400mg/200ml Dsw) 200 mls @ 133 mls/hr IVPB Q12H [facility] Last Admin: 06/27/16 09:00 Dose: 133 mls/hr Potassium Chloride (Potassium Chloride 20 Meq/100 Ml) 100 mls @ 50 mls/hr IVPB BID [facility] Stop: 06/28/16 11:59 Metoprolol Tartrate (Lopressor) 50 mg PO Q12 [facility] Last Admin: 06/27/16 09:57 Dose: 50 mg Ondansetron HCl (Zofran Inj) 4 mg IVP Q4 PRN PRN Reason: Nausea/Vomiting Sodium Phosphate (Fleet Enema) 135 ml HI Q8 [facility] Last Admin: 06/27/16 14:36 Dose: 135 ml Zolpidem Tartrate (Ambien) 5 mg PO HS PRN PRN Reason: Insomnia Last Admin: 06/26/16 22:53 Dose: 5 mg - Labs Labs: 06/27/16 08:04 06/27/16 08:04 - Constitutional Appears: Well, Non-toxic, No Acute Distress - Head Exam Head Exam: ATRAUMATIC, NORMOCEPHALIC - Eye Exam Eye Exam: EOMI, Normal appearance - ENT Exam ENT Exam: Mucous Membranes Moist - Respiratory Exam Respiratory Exam: NORMAL BREATHING PATTERN. absent: Respiratory Distress - Cardiovascular Exam Cardiovascular Exam: +S1, +S2 - GI/Abdominal Exam GI & Abdominal Exam: Distended, Tenderness (very mild tenderness diffusely). absent: Guarding, Rigid, Soft, Rebound Additional comments: NG tube in place on low intermittent suction with 970cc over past 24 hours - Neurological Exam Neurological Exam: Alert, Awake, Oriented x3 - Psychiatric Exam Psychiatric exam: Normal Affect, Normal Mood - Skin Skin Exam: Dry, Intact, Warm Assessment and Plan - Assessment and Plan (Free Text) Assessment: 80 yo M with partial SBO secondary to enteritis/colitis - afebrile, VSS - NG tube in place on suction with 970 cc output over past 24 hours - continue NG tube on low intermittent suction - GI following - Continue enemas - hypokalemia of 3.3 today, KCl ordered - continue to try to ambulate - ordered CT Abd/Pelvis with IV and PO contrast, will follow up -Discussed plan with Dr. Glenda Weathers PGY-2 <Abiodun Doshi - Last Filed: 06/30/16 21:26> Objective - Vital Signs/Intake and Output Vital Signs (last 24 hours): Temp Pulse Resp BP Pulse Ox 98.2 F 57 L 20 188/81 H 97 06/30/16 16:42 06/30/16 16:42 06/30/16 16:42 06/30/16 16:42 06/30/16 16:42 Intake and Output: 06/30/16 07/01/16 18:59 06:59 Intake Total 1200 Balance 1200 - Medications Medications: Current Medications Enoxaparin Sodium (Lovenox) 40 mg SC DAILY [facility] Last Admin: 06/30/16 09:01 Dose: 40 mg Ciprofloxacin (Cipro 400mg/200ml Dsw) 200 mls @ 133 mls/hr IVPB Q12H [facility] Last Admin: 06/30/16 09:12 Dose: 133 mls/hr Losartan Potassium (Cozaar) 100 mg PO DAILY [facility] Metoclopramide HCl (Reglan) 5 mg PO Q8H [facility] Last Admin: 06/30/16 13:43 Dose: 5 mg Metoprolol Tartrate (Lopressor) 50 mg PO Q12 [facility] Last Admin: 06/30/16 09:01 Dose: 50 mg Metronidazole (Flagyl) 500 mg PO Q8 [facility] Last Admin: 06/30/16 13:43 Dose: 500 mg Ondansetron HCl (Zofran Inj) 4 mg IVP Q4 PRN PRN Reason: Nausea/Vomiting Zolpidem Tartrate (Ambien) 5 mg PO HS PRN PRN Reason: Insomnia Last Admin: 06/26/16 22:53 Dose: 5 mg - Labs Labs: 06/30/16 07:49 06/30/16 07:49 Attending/Attestation - Attestation I have personally seen and examined this patient.: Yes I have fully participated in the care of the patient.: Yes I have reviewed all pertinent clinical information, including history, physical exam and plan: Yes Notes (Text): 06/30/16 21:25 Pt was seen and examined at bedside on 06/27/16 Agree with above note and assessment Repeat CT scan with PO and IV contrast NG aliya NICOLE NPO Plan d.w pt in detail Risk and benefit explained in detail.
[2016-06-27] MEDS ORDERED: Iohexol 350mg/ml 100 ML ONE (16:27)
--- NOTE | 2016-06-27 17:27 | CT ---
PROCEDURE: CT Abdomen and Pelvis with oral and IV contrast. HISTORY: SBO COMPARISON: CT abdomen and pelvis with contrast performed 06/24/16 TECHNIQUE: Contiguous axial images of the abdomen and pelvis. Oral and IV contrast was administered. Coronal and Sagittal reformats generated and reviewed. This CT exam was performed using 1 or more of the following dose reduction techniques: Automated exposure control, adjustment of the MAA and/or kV according to patient size, and/or use of iterative reconstruction technique Contrast dose: 100 mL Omnipaque 350 Radiation dose: Total exam DLP = 1123.46 mGy-cm. FINDINGS: Nasogastric tube extends the stomach. LOWER THORAX: Motion artifact limits evaluation of the lung bases. Bibasilar atelectasis or pneumonia. There is no visible pleural effusion or pneumothorax. LIVER: Unremarkable. No gross lesion or ductal dilatation. GALLBLADDER AND BILE DUCTS: Unremarkable. PANCREAS: 9 x 18 mm fat density lesion within the pancreatic body. SPLEEN: Diminutive spleen. ADRENALS: Unremarkable. KIDNEYS AND URETERS: The kidneys enhance symmetrically. No hydronephrosis or obstructing renal calculus. Low-density and too small to characterize bilateral renal lesions. BLADDER: Decompressed urinary bladder limits evaluation. REPRODUCTIVE: Brachytherapy seeds in prostate gland. APPENDIX: The appendix appears within normal limits of caliber. No secondary signs of acute appendicitis. BOWEL: The stomach is nondistended. Numerous dilated loops of small bowel throughout the abdomen with collapsed colon remains consistent with high grade small bowel obstruction. Transition point not definitely identified. PERITONEUM: No significant free fluid. No definite free air. LYMPH NODES: No bulky lymphadenopathy identified. VASCULATURE: No aortic aneurysm. BONES: Degenerative changes of the spine. OTHER FINDINGS: None. IMPRESSION: Numerous dilated loops of small bowel throughout the abdomen with collapsed colon remains consistent with high grade small bowel obstruction. Transition point not definitely identified. Bibasilar atelectasis or pneumonia. Low-density and too small to characterize bilateral renal lesions. Renal ultrasound recommended. 9 x 18 mm fat density lesion within the pancreatic body.
[2016-06-27] MEDS: Potassium Chloride 20 mEq 100 ML IVPB SCH (17:43)
--- NOTE | 2016-06-27 18:38 | CP.PCM.PN ---
Subjective - Date & Time of Evaluation Date of Evaluation: 06/27/16 Time of Evaluation: 18:31 - Subjective Subjective: Patient has no abdominal cramps or nausea. Has been having small BM's with enema q 8H, and flatus. But Obstructive sesies and CT scan of the abdomen today still show dilated small bowel loops with air-fluid levels and minimal gas in the right colon, compatible with an intermittent high-grade stenosis of the distal small bowels. He is afebrile, but his abdomen remains distended with high pitches BS and no tenderness. Low serum K= has been treated with IV KCl.. To repeat obstructive series in AM. Objective - Vital Signs/Intake and Output Vital Signs (last 24 hours): Temp Pulse Resp BP Pulse Ox 97.8 F 74 21 196/94 H 95 06/27/16 15:00 06/27/16 15:00 06/27/16 15:00 06/27/16 15:00 06/27/16 15:00 Intake and Output: 06/27/16 06/27/16 06:59 18:59 Intake Total 1250 700 Output Total 1020 340 Balance 230 360 - Medications Medications: Current Medications Potassium Chloride/Dextrose/Sod Cl (Potassium Chl 20 Meq In D5-1/2ns) 1,000 mls @ 125 mls/hr IV .Q8H [facility] Last Admin: 06/27/16 17:44 Dose: Not Given Metronidazole (Flagyl) 100 mls @ 100 mls/hr IVPB Q8 [facility] Last Admin: 06/27/16 14:35 Dose: 100 mls/hr Ciprofloxacin (Cipro 400mg/200ml Dsw) 200 mls @ 133 mls/hr IVPB Q12H [facility] Last Admin: 06/27/16 09:00 Dose: 133 mls/hr Potassium Chloride (Potassium Chloride 20 Meq/100 Ml) 100 mls @ 50 mls/hr IVPB BID [facility] Stop: 06/28/16 11:59 Last Admin: 06/27/16 17:43 Dose: 50 mls/hr Metoprolol Tartrate (Lopressor) 50 mg PO Q12 [facility] Last Admin: 06/27/16 09:57 Dose: 50 mg Ondansetron HCl (Zofran Inj) 4 mg IVP Q4 PRN PRN Reason: Nausea/Vomiting Sodium Phosphate (Fleet Enema) 135 ml [place] Q8 [facility] Last Admin: 06/27/16 14:36 Dose: 135 ml Zolpidem Tartrate (Ambien) 5 mg PO HS PRN PRN Reason: Insomnia Last Admin: 06/26/16 22:53 Dose: 5 mg - Labs Labs: 06/27/16 08:04 06/27/16 08:04 - Constitutional Appears: No Acute Distress - Head Exam Head Exam: NORMAL INSPECTION - Eye Exam Eye Exam: Normal appearance - ENT Exam ENT Exam: Normal Exam - Neck Exam Neck Exam: Normal Inspection - Respiratory Exam Additional comments: Rhonchi both bases. - Cardiovascular Exam Cardiovascular Exam: REGULAR RHYTHM - GI/Abdominal Exam GI & Abdominal Exam: Distended - Extremities Exam Extremities Exam: Normal Inspection - Back Exam Back Exam: NORMAL INSPECTION - Neurological Exam Neurological Exam: Alert, Awake, Oriented x3 - Psychiatric Exam Psychiatric exam: Anxious - Skin Skin Exam: Dry, Intact, Normal Color, Warm Assessment and Plan (1) Small bowel obstruction Assessment & Plan: No significant change in SBO. Status: Acute (2) Uncontrolled hypertension Assessment & Plan: To continue Metoprolol tartrate 50 via NGT BIB. Status: Acute
[2016-06-28] MEDS: Potassium Ch 20mEq in D5-1/2NS 1,000 ML IV SCH ×2 (01:37→09:47)
[2016-06-28] MEDS: metroNIDAZOLE IV 500 mg/100 ml 100 ML IVPB SCH ×3 (06:04→21:40)
[2016-06-28] MEDS: Potassium Chloride 20 mEq 100 ML IVPB SCH (09:43)
[2016-06-28] MEDS: Ciprofloxacin 400mg/200ml D5W 200 ML IVPB SCH ×2 (10:30→20:33)
[2016-06-28 11:36] LABS: BASO % 0.2 % (0.0-2.0); EOS # 0.1 K/uL (0.0-0.7); EOS % 1.8 % (0.0-4.0); HEMATOCRIT 36.2 % (35.0-51.0); LYMPH # 1.4 K/uL (1.0-4.3); LYMPH % 22.8 % (20.0-40.0); MEAN CELL VOLUME 83.5 fL (80.0-94.0); MEAN CORPUSCULAR HEMOGLOBIN 26.9 pg (27.0-31.0); MEAN CORPUSCULAR HGB CONC 32.2 g/dL (33.0-37.0); MEAN PLATELET VOLUME 7.9 fL (7.2-11.7); MONO # 0.6 K/uL (0.0-0.8); MONO % 9.7 % (0.0-10.0); NRBC % 0.1 % (0.0-2.0); RED CELL DISTRIBUTION WIDTH 14.4 % (11.5-14.5); WHITE BLOOD COUNT 6.3 K/uL (4.8-10.8)
[2016-06-28 11:58] LABS: CHLORIDE 99 mmol/L (98-107); POTASSIUM 3.2 mmol/L (3.6-5.2); SODIUM 137 mmol/L (132-148)
[2016-06-28 12:01] LABS: CARBON DIOXIDE 24 mmol/L (22-30); GFR AFRICAN-AMERICAN > 60
[2016-06-28 12:02] LABS: BLOOD UREA NITROGEN 11 mg/dL (9-20); CALCIUM 7.8 mg/dl (8.6-10.4); GLUCOSE,RANDOM 111 mg/dL (75-110)
--- NOTE | 2016-06-28 13:31 | CP.PCM.PN ---
<Jennifer Weathers - Last Filed: 06/28/16 13:39> Subjective - Date & Time of Evaluation Date of Evaluation: 06/28/16 Time of Evaluation: 07:00 - Subjective Subjective: GENERAL SURGERY PROGRESS NOTE FOR DR. DOSHI Patient seen and examined at bedside. He denies abdominal pain. He is unsure if he has passed flatus. 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 NG tube remains in place on suction, NG tube was flushed. Objective - Vital Signs/Intake and Output Vital Signs (last 24 hours): Temp Pulse Resp BP Pulse Ox 97.5 F L 75 20 187/75 H 96 06/28/16 08:00 06/28/16 08:00 06/28/16 08:00 06/28/16 08:00 06/28/16 08:00 Intake and Output: 06/28/16 06/28/16 06:59 18:59 Intake Total 2050 Output Total 650 Balance 1400 - Medications Medications: Current Medications Potassium Chloride/Dextrose/Sod Cl (Potassium Chl 20 Meq In D5-1/2ns) 1,000 mls @ 125 mls/hr IV .Q8H [facility] Last Admin: 06/28/16 09:47 Dose: Not Given Metronidazole (Flagyl) 100 mls @ 100 mls/hr IVPB Q8 [facility] Last Admin: 06/28/16 06:04 Dose: 100 mls/hr Ciprofloxacin (Cipro 400mg/200ml Dsw) 200 mls @ 133 mls/hr IVPB Q12H [facility] Last Admin: 06/28/16 10:30 Dose: 133 mls/hr Metoprolol Tartrate (Lopressor) 50 mg PO Q12 [facility] Last Admin: 06/28/16 09:46 Dose: 50 mg Ondansetron HCl (Zofran Inj) 4 mg IVP Q4 PRN PRN Reason: Nausea/Vomiting Sodium Phosphate (Fleet Enema) 135 ml [place] Q8 [facility] Last Admin: 06/28/16 06:22 Dose: 135 ml Zolpidem Tartrate (Ambien) 5 mg PO HS PRN PRN Reason: Insomnia Last Admin: 06/26/16 22:53 Dose: 5 mg - Labs Labs: 06/28/16 11:24 06/28/16 11:24 - Constitutional Appears: Non-toxic, No Acute Distress - Head Exam Head Exam: ATRAUMATIC, NORMAL INSPECTION - Eye Exam Eye Exam: EOMI, Normal appearance - Respiratory Exam Respiratory Exam: NORMAL BREATHING PATTERN. absent: Respiratory Distress - Cardiovascular Exam Cardiovascular Exam: +S1, +S2 - GI/Abdominal Exam GI & Abdominal Exam: Distended, Soft. absent: Firm, Guarding, Rigid, Tenderness , Rebound Additional comments: NG tube on low suction with 990cc output over past 24hrs - Neurological Exam Neurological Exam: Alert, Awake, Oriented x3 - Psychiatric Exam Psychiatric exam: Normal Affect, Normal Mood - Skin Skin Exam: Dry, Normal Color, Warm Assessment and Plan - Assessment and Plan (Free Text) Assessment: 80 yo M with partial SBO - Afebrile, VSS - NG tube in place on suction with 990 cc output over past 24 hours - Continue NG tube on low suction, tubing flushed this morning - GI following - Continue enemas - Hypokalemia of 3.2 today, KCl ordered and fluids switched to D5 1/2NS + 40meq KCl - Encouraged ambulation - Flat and upright X-ray done - Continue conservative management - Discussed plan with Dr. Glenda Weathers PGY-2 <Abiodun Doshi - Last Filed: 06/30/16 21:29> Objective - Vital Signs/Intake and Output Vital Signs (last 24 hours): Temp Pulse Resp BP Pulse Ox 98.2 F 57 L 20 188/81 H 97 06/30/16 16:42 06/30/16 16:42 06/30/16 16:42 06/30/16 16:42 06/30/16 16:42 Intake and Output: 06/30/16 07/01/16 18:59 06:59 Intake Total 1200 Balance 1200 - Medications Medications: Current Medications Enoxaparin Sodium (Lovenox) 40 mg [place] DAILY [facility] Last Admin: 06/30/16 09:01 Dose: 40 mg Ciprofloxacin (Cipro 400mg/200ml Dsw) 200 mls @ 133 mls/hr IVPB Q12H [facility] Last Admin: 06/30/16 09:12 Dose: 133 mls/hr Losartan Potassium (Cozaar) 100 mg PO DAILY [facility] Metoclopramide HCl (Reglan) 5 mg PO Q8H [facility] Last Admin: 06/30/16 13:43 Dose: 5 mg Metoprolol Tartrate (Lopressor) 50 mg PO Q12 [facility] Last Admin: 06/30/16 09:01 Dose: 50 mg Metronidazole (Flagyl) 500 mg PO Q8 [facility] Last Admin: 06/30/16 13:43 Dose: 500 mg Ondansetron HCl (Zofran Inj) 4 mg IVP Q4 PRN PRN Reason: Nausea/Vomiting Zolpidem Tartrate (Ambien) 5 mg PO HS PRN PRN Reason: Insomnia Last Admin: 06/26/16 22:53 Dose: 5 mg - Labs Labs: 06/30/16 07:49 06/30/16 07:49 Attending/Attestation - Attestation I have personally seen and examined this patient.: Yes I have fully participated in the care of the patient.: Yes I have reviewed all pertinent clinical information, including history, physical exam and plan: Yes Notes (Text): 06/30/16 21:28 Pt was seen and examined at bedside on 06/28/16 Agree with above note and assessment CT scan of A/P reviewed: PSBO without transition point No need for surgical intervention at present NG to LIS NPO Plan d.w pt in detail Plan d/w pt Primary team.
[2016-06-28] MEDS ORDERED: Potassium Chloride 20 mEq 100 ML IVPB ONE (13:35)
--- NOTE | 2016-06-28 16:52 | RAD ---
HISTORY: SBO, eval for contrast in colon COMPARISON: Obstructive series performed 06/27/16 FINDINGS: Distal tip of nasogastric tube extends to the expected location of the stomach. BOWEL: Examination limited by habitus. Persistent dilated small bowel loops compatible with obstruction. Probable limited oral contrast within the rectosigmoid colon. BONES: Osseous demineralization. Degenerative changes. OTHER FINDINGS: Brachytherapy seeds, prostate gland. IMPRESSION: Examination limited by habitus. Persistent dilated small bowel loops compatible with small bowel obstruction. Probable limited oral contrast within the rectosigmoid colon. Distal tip of nasogastric tube extends to the expected location of the stomach.
[2016-06-28] MEDS: Potassium Chl 40 mEq in D5-1/2 1,000 ML IV SCH (17:03)
--- NOTE | 2016-06-28 17:44 | CP.PCM.PN ---
Subjective - Date & Time of Evaluation Date of Evaluation: 06/28/16 Time of Evaluation: 17:41 - Subjective Subjective: Patient denies having nausea or vomiting. The NG tube remains in place and is connected to low intermittent suction. He had one small, firm bowel movement yesterday. He denies having rectal bleeding. Objective - Vital Signs/Intake and Output Vital Signs (last 24 hours): Temp Pulse Resp BP Pulse Ox 98.3 F 68 20 184/91 H 98 06/28/16 15:00 06/28/16 15:00 06/28/16 15:00 06/28/16 15:00 06/28/16 15:00 Intake and Output: 06/28/16 06/28/16 06:59 18:59 Intake Total 2050 Output Total 650 Balance 1400 - Medications Medications: Current Medications Metronidazole (Flagyl) 100 mls @ 100 mls/hr IVPB Q8 [facility] Last Admin: 06/28/16 14:35 Dose: 100 mls/hr Ciprofloxacin (Cipro 400mg/200ml Dsw) 200 mls @ 133 mls/hr IVPB Q12H [facility] Last Admin: 06/28/16 10:30 Dose: 133 mls/hr Potassium Chloride/Dextrose/Sod Cl (Potassium Chl 40 Meq In D5-1/2ns) 1,000 mls @ 125 mls/hr IV .Q8H [facility] Last Admin: 06/28/16 17:03 Dose: 125 mls/hr Metoprolol Tartrate (Lopressor) 50 mg PO Q12 [facility] Last Admin: 06/28/16 09:46 Dose: 50 mg Ondansetron HCl (Zofran Inj) 4 mg IVP Q4 PRN PRN Reason: Nausea/Vomiting Sodium Phosphate (Fleet Enema) 135 ml [place] Q8 [facility] Last Admin: 06/28/16 14:35 Dose: 135 ml Zolpidem Tartrate (Ambien) 5 mg PO HS PRN PRN Reason: Insomnia Last Admin: 06/26/16 22:53 Dose: 5 mg - Labs Labs: 06/28/16 11:24 06/28/16 11:24 - Constitutional Appears: No Acute Distress - Head Exam Head Exam: ATRAUMATIC, NORMOCEPHALIC - Eye Exam Eye Exam: EOMI, PERRL - Neck Exam Neck Exam: absent: Lymphadenopathy, Thyromegaly - Respiratory Exam Respiratory Exam: NORMAL BREATHING PATTERN. absent: Rales, Rhonchi, Wheezes - Cardiovascular Exam Cardiovascular Exam: REGULAR RHYTHM, +S1, +S2. absent: Gallop, Rubs, Murmur - GI/Abdominal Exam GI & Abdominal Exam: Distended, Soft, Hypoactive Bowel Sounds. absent: Tenderness, Organomegaly - Rectal Exam Rectal Exam: Deferred - Extremities Exam Extremities Exam: absent: Calf Tenderness, Pedal Edema Assessment and Plan (1) Small bowel obstruction Assessment & Plan: The CT scan shows persistent dilattation of the small bowel, though on the abdominal xray of today, there seems to be more gas in the colon. Recommend repeat x-ray in AM and close follow up from surgery.. Status: Acute
--- NOTE | 2016-06-28 20:53 | CP.PCM.PN ---
Subjective - Date & Time of Evaluation Date of Evaluation: 06/28/16 Time of Evaluation: 20:50 - Subjective Subjective: Patient has no nausea. Passing flatus but no stools. Afebrile. Objective - Vital Signs/Intake and Output Vital Signs (last 24 hours): Temp Pulse Resp BP Pulse Ox 98.3 F 68 20 184/91 H 98 06/28/16 15:00 06/28/16 15:00 06/28/16 15:00 06/28/16 15:00 06/28/16 15:00 - Medications Medications: Current Medications Metronidazole (Flagyl) 100 mls @ 100 mls/hr IVPB Q8 [facility] Last Admin: 06/28/16 14:35 Dose: 100 mls/hr Ciprofloxacin (Cipro 400mg/200ml Dsw) 200 mls @ 133 mls/hr IVPB Q12H [facility] Last Admin: 06/28/16 20:33 Dose: 133 mls/hr Potassium Chloride/Dextrose/Sod Cl (Potassium Chl 40 Meq In D5-1/2ns) 1,000 mls @ 125 mls/hr IV .Q8H [facility] Last Admin: 06/28/16 17:03 Dose: 125 mls/hr Metoprolol Tartrate (Lopressor) 50 mg PO Q12 [facility] Last Admin: 06/28/16 09:46 Dose: 50 mg Ondansetron HCl (Zofran Inj) 4 mg IVP Q4 PRN PRN Reason: Nausea/Vomiting Sodium Phosphate (Fleet Enema) 135 ml IN Q8 [facility] Last Admin: 06/28/16 14:35 Dose: 135 ml Zolpidem Tartrate (Ambien) 5 mg PO HS PRN PRN Reason: Insomnia Last Admin: 06/26/16 22:53 Dose: 5 mg - Labs Labs: 06/28/16 11:24 06/28/16 11:24 - Constitutional Appears: No Acute Distress - Head Exam Head Exam: NORMAL INSPECTION - Eye Exam Eye Exam: Normal appearance - ENT Exam ENT Exam: Normal Exam - Neck Exam Neck Exam: Normal Inspection - Respiratory Exam Additional comments: Few rhonchi both bases. - Cardiovascular Exam Cardiovascular Exam: REGULAR RHYTHM - GI/Abdominal Exam GI & Abdominal Exam: Distended - Exam Exam: NORMAL INSPECTION - Extremities Exam Extremities Exam: Normal Inspection - Back Exam Back Exam: NORMAL INSPECTION - Neurological Exam Neurological Exam: Alert, Awake, Oriented x3 - Psychiatric Exam Psychiatric exam: Anxious - Skin Skin Exam: Dry, Intact, Normal Color, Warm Assessment and Plan (1) Small bowel obstruction Assessment & Plan: Intermittent SBO. Obstructive series in AM. Status: Acute (2) Uncontrolled hypertension Assessment & Plan: To continue same meds. Replace K+ with IV KCl. Status: Acute
[2016-06-29] MEDS: metroNIDAZOLE IV 500 mg/100 ml 100 ML IVPB SCH ×3 (05:21→23:00)
--- NOTE | 2016-06-29 08:45 | CP.PCM.PN ---
Subjective - Date & Time of Evaluation Date of Evaluation: 06/29/16 Time of Evaluation: 08:41 - Subjective Subjective: Surgery: Dr. Wyman (covering for Dr. Doshi) Pt seen and examined. No acute overnight events. States he's feeling well and denies abdominal pain. Admits to flatus & having BMs after enemas. Denies N/V, F /C. Objective - Vital Signs/Intake and Output Vital Signs (last 24 hours): Temp Pulse Resp BP Pulse Ox 97.8 F 73 20 187/98 H 97 06/29/16 07:35 06/29/16 07:35 06/29/16 07:35 06/29/16 07:35 06/29/16 07:35 Intake and Output: 06/29/16 06/29/16 06:59 18:59 Intake Total 2000 Output Total 550 Balance 1450 - Medications Medications: Current Medications Metronidazole (Flagyl) 100 mls @ 100 mls/hr IVPB Q8 [facility] Last Admin: 06/29/16 05:21 Dose: 100 mls/hr Ciprofloxacin (Cipro 400mg/200ml Dsw) 200 mls @ 133 mls/hr IVPB Q12H [facility] Last Admin: 06/28/16 20:33 Dose: 133 mls/hr Potassium Chloride/Dextrose/Sod Cl (Potassium Chl 40 Meq In D5-1/2ns) 1,000 mls @ 125 mls/hr IV .Q8H [facility] Last Admin: 06/28/16 17:03 Dose: 125 mls/hr Metoprolol Tartrate (Lopressor) 50 mg PO Q12 [facility] Last Admin: 06/28/16 21:40 Dose: 50 mg Ondansetron HCl (Zofran Inj) 4 mg IVP Q4 PRN PRN Reason: Nausea/Vomiting Sodium Phosphate (Fleet Enema) 135 ml [place] Q8 [facility] Last Admin: 06/29/16 05:25 Dose: 135 ml Zolpidem Tartrate (Ambien) 5 mg PO HS PRN PRN Reason: Insomnia Last Admin: 06/26/16 22:53 Dose: 5 mg - Labs Labs: 06/28/16 11:24 06/28/16 11:24 - Constitutional Appears: Well, No Acute Distress - Head Exam Head Exam: ATRAUMATIC, NORMOCEPHALIC - ENT Exam ENT Exam: Mucous Membranes Moist - Respiratory Exam Respiratory Exam: NORMAL BREATHING PATTERN - Cardiovascular Exam Cardiovascular Exam: RRR - GI/Abdominal Exam GI & Abdominal Exam: Soft. absent: Guarding, Tenderness, Rebound - Neurological Exam Neurological Exam: Alert, Awake, Oriented x3 - Skin Skin Exam: Dry, Intact, Warm Assessment and Plan - Assessment and Plan (Free Text) Assessment: 80M with SBO vs ileus; resolving Plan: - will discuss clamping NGT and starting CLD with Dr. Wyman - If pt tolerates will take out NGT and advance diet slowly - encourage ambulation - d/w Dr. Garo Lomeli, PGY-2 Surgery
[2016-06-29] MEDS: Potassium Chl 40 mEq in D5-1/2 1,000 ML IV SCH ×3 (09:45→20:56)
[2016-06-29] MEDS: Ciprofloxacin 400mg/200ml D5W 200 ML IVPB SCH ×2 (09:46→20:56)
--- NOTE | 2016-06-29 10:42 | RAD ---
PROCEDURE: Radiographs of the chest and abdomen (obstructive series) HISTORY: SBO F/U COMPARISON: Abdominal radiographs performed 06/28/16 TECHNIQUE: AP radiograph of the chest, with upright and supine radiographs of the abdomen. FINDINGS: CHEST: Nasogastric tube extends expected location of the stomach. Examination limited by habitus and hypoinflation. Cardiomegaly. Bibasilar atelectasis or infiltrate. Discoid atelectasis, lingula. ABDOMEN AND PELVIS: Persistent dilated bowel loops consistent with obstruction. No definite free air. Brachytherapy seeds, prostate gland. Degenerative changes. IMPRESSION: Nasogastric tube extends expected location of the stomach. Persistent dilated bowel loops consistent with obstruction. Bibasilar atelectasis or infiltrates. Lingular atelectasis.
--- NOTE | 2016-06-29 13:15 | CP.PCM.PN ---
Subjective - Date & Time of Evaluation Date of Evaluation: 06/29/16 Time of Evaluation: 13:12 - Subjective Subjective: Patient and family report at least six bowel movements since last night. Patient states that he feels slightly less distended. He denies having nausea or vomiting. Objective - Vital Signs/Intake and Output Vital Signs (last 24 hours): Temp Pulse Resp BP Pulse Ox 97.8 F 73 20 187/98 H 97 06/29/16 07:35 06/29/16 07:35 06/29/16 07:35 06/29/16 07:35 06/29/16 07:35 Intake and Output: 06/29/16 06/29/16 06:59 18:59 Intake Total 2000 Output Total 550 Balance 1450 - Medications Medications: Current Medications Metronidazole (Flagyl) 100 mls @ 100 mls/hr IVPB Q8 [facility] Last Admin: 06/29/16 05:21 Dose: 100 mls/hr Ciprofloxacin (Cipro 400mg/200ml Dsw) 200 mls @ 133 mls/hr IVPB Q12H [facility] Last Admin: 06/29/16 09:46 Dose: 133 mls/hr Potassium Chloride/Dextrose/Sod Cl (Potassium Chl 40 Meq In D5-1/2ns) 1,000 mls @ 125 mls/hr IV .Q8H [facility] Last Admin: 06/29/16 09:45 Dose: 125 mls/hr Metoclopramide HCl (Reglan) 5 mg IVP Q8 [facility] Last Admin: 06/29/16 12:00 Dose: Not Given Metoprolol Tartrate (Lopressor) 50 mg PO Q12 [facility] Last Admin: 06/29/16 09:46 Dose: 50 mg Ondansetron HCl (Zofran Inj) 4 mg IVP Q4 PRN PRN Reason: Nausea/Vomiting Sodium Phosphate (Fleet Enema) 135 ml [place] Q8 [facility] Last Admin: 06/29/16 05:25 Dose: 135 ml Zolpidem Tartrate (Ambien) 5 mg PO HS PRN PRN Reason: Insomnia Last Admin: 06/26/16 22:53 Dose: 5 mg - Labs Labs: 06/28/16 11:24 06/28/16 11:24 - Constitutional Appears: No Acute Distress - Head Exam Head Exam: ATRAUMATIC, NORMOCEPHALIC - Eye Exam Eye Exam: EOMI, PERRL - Neck Exam Neck Exam: absent: Lymphadenopathy, Thyromegaly - Respiratory Exam Respiratory Exam: NORMAL BREATHING PATTERN. absent: Rales, Rhonchi, Wheezes - Cardiovascular Exam Cardiovascular Exam: REGULAR RHYTHM, +S1, +S2. absent: Gallop, Rubs, Murmur - GI/Abdominal Exam GI & Abdominal Exam: Distended, Soft, Hypoactive Bowel Sounds. absent: Tenderness, Organomegaly - Rectal Exam Rectal Exam: absent: Deferred - Extremities Exam Extremities Exam: absent: Calf Tenderness, Pedal Edema Assessment and Plan (1) Small bowel obstruction Assessment & Plan: The abdominal exam shows slightly less distention from yesterday, though the abdomen is still markedly tympanitic and bowel sounds are sluggish. The abdominal x-ray is still being read as small bowel obstruction. Recommend repeat calcium determination and supplementation if indicated. Status: Acute
[2016-06-29 15:10] LABS: CHLORIDE 102 mmol/L (98-107)
[2016-06-29 15:11] LABS: POTASSIUM 3.8 mmol/L (3.6-5.2); SODIUM 139 mmol/L (132-148)
[2016-06-29 15:13] LABS: BILIRUBIN,TOTAL 0.6 mg/dL (0.2-1.3); CARBON DIOXIDE 23 mmol/L (22-30); GFR AFRICAN-AMERICAN > 60
[2016-06-29 15:14] LABS: ALB/GLOB RATIO 1.3 (1.0-2.1); ALKALINE PHOSPHATASE 46 U/L (38-126); ALT/SGPT 40 U/L (21-72); AST/SGOT 45 U/L (17-59); BLOOD UREA NITROGEN 11 mg/dL (9-20); CALCIUM 7.9 mg/dl (8.6-10.4); GLUCOSE,RANDOM 93 mg/dL (75-110); TOTAL PROTEIN 6.5 g/dL (6.3-8.3)
--- NOTE | 2016-06-29 17:19 | CP.PCM.PN ---
Subjective - Date & Time of Evaluation Date of Evaluation: 06/29/16 Time of Evaluation: 17:17 - Subjective Subjective: Patient has no complaint of nausea, abdominal pain. Had few BM this AM. ABdomen much less distended. Serum K+: 3.8. On Relan now. Objective - Vital Signs/Intake and Output Vital Signs (last 24 hours): Temp Pulse Resp BP Pulse Ox 97.8 F 73 20 187/98 H 97 06/29/16 07:35 06/29/16 07:35 06/29/16 07:35 06/29/16 07:35 06/29/16 07:35 Intake and Output: 06/29/16 06/29/16 06:59 18:59 Intake Total 2000 950 Output Total 550 50 Balance 1450 900 - Medications Medications: Current Medications Metronidazole (Flagyl) 100 mls @ 100 mls/hr IVPB Q8 [facility] Last Admin: 06/29/16 14:04 Dose: 100 mls/hr Ciprofloxacin (Cipro 400mg/200ml Dsw) 200 mls @ 133 mls/hr IVPB Q12H [facility] Last Admin: 06/29/16 09:46 Dose: 133 mls/hr Potassium Chloride/Dextrose/Sod Cl (Potassium Chl 40 Meq In D5-1/2ns) 1,000 mls @ 125 mls/hr IV .Q8H [facility] Last Admin: 06/29/16 16:34 Dose: Not Given Losartan Potassium (Cozaar) 50 mg PO DAILY [facility] Metoclopramide HCl (Reglan) 5 mg IVP Q8 [facility] Last Admin: 06/29/16 14:03 Dose: 5 mg Metoprolol Tartrate (Lopressor) 50 mg PO Q12 [facility] Last Admin: 06/29/16 09:46 Dose: 50 mg Ondansetron HCl (Zofran Inj) 4 mg IVP Q4 PRN PRN Reason: Nausea/Vomiting Zolpidem Tartrate (Ambien) 5 mg PO HS PRN PRN Reason: Insomnia Last Admin: 06/26/16 22:53 Dose: 5 mg - Labs Labs: 06/28/16 11:24 06/29/16 14:56 - Constitutional Appears: No Acute Distress - Head Exam Head Exam: NORMAL INSPECTION - Eye Exam Eye Exam: Normal appearance - ENT Exam ENT Exam: Normal Exam - Neck Exam Neck Exam: Normal Inspection - Respiratory Exam Additional comments: Few rhonchi at both bases. - Cardiovascular Exam Cardiovascular Exam: REGULAR RHYTHM - GI/Abdominal Exam GI & Abdominal Exam: Distended, Hypoactive Bowel Sounds - Rectal Exam Rectal Exam: Deferred - Extremities Exam Extremities Exam: Normal Inspection - Back Exam Back Exam: NORMAL INSPECTION - Neurological Exam Neurological Exam: Alert, Awake, Oriented x3 - Psychiatric Exam Psychiatric exam: Anxious - Skin Skin Exam: Dry, Intact, Normal Color Assessment and Plan (1) Small bowel obstruction Assessment & Plan: Some improvement in abdominal distention. Status: Acute (2) Uncontrolled hypertension Assessment & Plan: Will add Losartan. Status: Acute
[2016-06-29 17:43] LABS: BASO % 0.4 % (0.0-2.0); EOS # 0.1 K/uL (0.0-0.7); EOS % 1.9 % (0.0-4.0); HEMATOCRIT 35.8 % (35.0-51.0); LYMPH # 2.5 K/uL (1.0-4.3); MEAN CELL VOLUME 84.1 fL (80.0-94.0); MEAN CORPUSCULAR HEMOGLOBIN 27.1 pg (27.0-31.0); MEAN CORPUSCULAR HGB CONC 32.3 g/dL (33.0-37.0); MEAN PLATELET VOLUME 7.6 fL (7.2-11.7); MONO # 0.7 K/uL (0.0-0.8); MONO % 9.5 % (0.0-10.0); RED CELL DISTRIBUTION WIDTH 14.7 % (11.5-14.5); WHITE BLOOD COUNT 7.7 K/uL (4.8-10.8)
[2016-06-29] MEDS: Enoxaparin 40 mg Syringe SC SCH (18:08)
[2016-06-30] MEDS: Potassium Chl 40 mEq in D5-1/2 1,000 ML IV SCH ×2 (03:51→08:56)
[2016-06-30] MEDS: metroNIDAZOLE IV 500 mg/100 ml 100 ML IVPB SCH (05:07)
[2016-06-30 08:04] LABS: BASO % 0.5 % (0.0-2.0); EOS # 0.2 K/uL (0.0-0.7); EOS % 3.3 % (0.0-4.0); HEMATOCRIT 36.1 % (35.0-51.0); LYMPH # 1.9 K/uL (1.0-4.3); LYMPH % 34.2 % (20.0-40.0); MEAN CELL VOLUME 84.1 fL (80.0-94.0); MEAN CORPUSCULAR HEMOGLOBIN 27.2 pg (27.0-31.0); MEAN CORPUSCULAR HGB CONC 32.3 g/dL (33.0-37.0); MONO # 0.5 K/uL (0.0-0.8); MONO % 9.5 % (0.0-10.0); NRBC % 0.1 % (0.0-2.0); RED CELL DISTRIBUTION WIDTH 14.4 % (11.5-14.5); WHITE BLOOD COUNT 5.5 K/uL (4.8-10.8)
[2016-06-30 08:29] LABS: CHLORIDE 104 mmol/L (98-107)
[2016-06-30 08:30] LABS: POTASSIUM 3.9 mmol/L (3.6-5.2); SODIUM 140 mmol/L (132-148)
[2016-06-30 08:32] LABS: ALB/GLOB RATIO 1.3 (1.0-2.1); ALKALINE PHOSPHATASE 43 U/L (38-126); ALT/SGPT 37 U/L (21-72); AST/SGOT 45 U/L (17-59); BILIRUBIN,TOTAL 0.3 mg/dL (0.2-1.3); BLOOD UREA NITROGEN 7 mg/dL (9-20); CARBON DIOXIDE 24 mmol/L (22-30); GFR AFRICAN-AMERICAN > 60; GLUCOSE,RANDOM 98 mg/dL (75-110); TOTAL PROTEIN 5.7 g/dL (6.3-8.3)
[2016-06-30 08:33] LABS: CALCIUM 7.7 mg/dl (8.6-10.4)
[2016-06-30] MEDS: Enoxaparin 40 mg Syringe SC SCH (09:01)
[2016-06-30] MEDS: Ciprofloxacin 400mg/200ml D5W 200 ML IVPB SCH ×2 (09:12→20:00)
--- NOTE | 2016-06-30 11:22 | RAD ---
HISTORY: Follow up small bowel obstruction COMPARISON: Multiple prior studies, the most recent performed 06/29/16 FINDINGS: BOWEL: Interval removal of nasogastric tube. Air is seen within the small and large bowel. BONES: No changes. OTHER FINDINGS: Brachytherapy seeds, prostate gland. Lung bases appear grossly unremarkable. IMPRESSION: Interval removal of nasogastric tube. Air is seen within the small and large bowel.
--- NOTE | 2016-06-30 11:58 | CP.PCM.PN ---
Subjective - Date & Time of Evaluation Date of Evaluation: 06/30/16 Time of Evaluation: 11:55 - Subjective Subjective: Patient denies having abdominal pain, nausea, vomiting. He states that he had one small bowel movement this morning. The abdomen remains distended. The NG tube has been removed. Objective - Vital Signs/Intake and Output Vital Signs (last 24 hours): Temp Pulse Resp BP Pulse Ox 98.2 F 60 20 165/71 H 96 06/30/16 07:29 06/30/16 07:29 06/30/16 07:29 06/30/16 07:29 06/30/16 07:29 Intake and Output: 06/30/16 06/30/16 06:59 18:59 Intake Total 2265 Output Total 10 Balance 2255 - Medications Medications: Current Medications Enoxaparin Sodium (Lovenox) 40 mg SC DAILY [facility] Last Admin: 06/30/16 09:01 Dose: 40 mg Metronidazole (Flagyl) 100 mls @ 100 mls/hr IVPB Q8 [facility] Last Admin: 06/30/16 05:07 Dose: 100 mls/hr Ciprofloxacin (Cipro 400mg/200ml Dsw) 200 mls @ 133 mls/hr IVPB Q12H [facility] Last Admin: 06/30/16 09:12 Dose: 133 mls/hr Potassium Chloride/Dextrose/Sod Cl (Potassium Chl 40 Meq In D5-1/2ns) 1,000 mls @ 125 mls/hr IV .Q8H [facility] Last Admin: 06/30/16 08:56 Dose: 125 mls/hr Losartan Potassium (Cozaar) 50 mg PO DAILY [facility] Last Admin: 06/30/16 09:00 Dose: 50 mg Metoclopramide HCl (Reglan) 5 mg IVP Q8 [facility] Last Admin: 06/30/16 05:07 Dose: 5 mg Metoprolol Tartrate (Lopressor) 50 mg PO Q12 [facility] Last Admin: 06/30/16 09:01 Dose: 50 mg Ondansetron HCl (Zofran Inj) 4 mg IVP Q4 PRN PRN Reason: Nausea/Vomiting Zolpidem Tartrate (Ambien) 5 mg PO HS PRN PRN Reason: Insomnia Last Admin: 06/26/16 22:53 Dose: 5 mg - Labs Labs: 06/30/16 07:49 06/30/16 07:49 - Constitutional Appears: No Acute Distress - Head Exam Head Exam: ATRAUMATIC, NORMOCEPHALIC - Eye Exam Eye Exam: EOMI, PERRL - Neck Exam Neck Exam: absent: Lymphadenopathy, Thyromegaly - Respiratory Exam Respiratory Exam: NORMAL BREATHING PATTERN. absent: Rales, Rhonchi, Wheezes - Cardiovascular Exam Cardiovascular Exam: REGULAR RHYTHM, +S1, +S2. absent: Gallop, Rubs, Murmur - GI/Abdominal Exam GI & Abdominal Exam: Distended, Soft, Hypoactive Bowel Sounds. absent: Tenderness, Mass - Rectal Exam Rectal Exam: Deferred - Extremities Exam Extremities Exam: absent: Calf Tenderness, Pedal Edema Assessment and Plan (1) Small bowel obstruction Assessment & Plan: The abdomen remaings distended, and gas is seen in the small bowel and colon on abdominal radiograph. Will check ionized calcium an supplement as indicated. Status: Acute
--- NOTE | 2016-06-30 14:23 | CP.PCM.PN ---
Subjective - Date & Time of Evaluation Date of Evaluation: 06/30/16 Time of Evaluation: 07:25 - Subjective Subjective: Pt S&E. NAEO. Pt reports that he is feeling much better. He states both the distension and the pain have improved, however patient remains slightly distended but abdomen is soft. NGT fell off. His last BM was yesterday evening. Tolerating clear liquid diet. Pt denies nausea, fever, and chills. Objective - Vital Signs/Intake and Output Vital Signs (last 24 hours): Temp Pulse Resp BP Pulse Ox 98.2 F 60 20 165/71 H 96 06/30/16 07:29 06/30/16 07:29 06/30/16 07:29 06/30/16 07:29 06/30/16 07:29 Intake and Output: 06/30/16 06/30/16 06:59 18:59 Intake Total 2265 Output Total 10 Balance 2255 - Medications Medications: Current Medications Enoxaparin Sodium (Lovenox) 40 mg SC DAILY [facility] Last Admin: 06/30/16 09:01 Dose: 40 mg Ciprofloxacin (Cipro 400mg/200ml Dsw) 200 mls @ 133 mls/hr IVPB Q12H [facility] Last Admin: 06/30/16 09:12 Dose: 133 mls/hr Losartan Potassium (Cozaar) 50 mg PO DAILY [facility] Last Admin: 06/30/16 09:00 Dose: 50 mg Metoclopramide HCl (Reglan) 5 mg PO Q8H [facility] Last Admin: 06/30/16 13:43 Dose: 5 mg Metoprolol Tartrate (Lopressor) 50 mg PO Q12 [facility] Last Admin: 06/30/16 09:01 Dose: 50 mg Metronidazole (Flagyl) 500 mg PO Q8 [facility] Last Admin: 06/30/16 13:43 Dose: 500 mg Ondansetron HCl (Zofran Inj) 4 mg IVP Q4 PRN PRN Reason: Nausea/Vomiting Zolpidem Tartrate (Ambien) 5 mg PO HS PRN PRN Reason: Insomnia Last Admin: 06/26/16 22:53 Dose: 5 mg - Labs Labs: 06/30/16 07:49 06/30/16 07:49 - Constitutional Appears: Non-toxic, No Acute Distress - Eye Exam Eye Exam: EOMI. absent: Scleral icterus - Respiratory Exam Respiratory Exam: NORMAL BREATHING PATTERN. absent: Respiratory Distress - GI/Abdominal Exam GI & Abdominal Exam: Distended, Soft. absent: Guarding, Rigid, Tenderness Additional comments: less distended than yesterday - Neurological Exam Neurological Exam: Alert, Awake, Oriented x3 - Psychiatric Exam Psychiatric exam: Normal Affect, Normal Mood - Skin Skin Exam: Normal Color, Warm Assessment and Plan - Assessment and Plan (Free Text) Assessment: 80M with SBO vs ileus; resolving - advance to FLD - encourage ambulation - d/w Dr. Wyman
--- NOTE | 2016-06-30 18:37 | CP.PCM.PN ---
Subjective - Date & Time of Evaluation Date of Evaluation: 06/30/16 Time of Evaluation: 18:34 - Subjective Subjective: No nausea, vomiting. Tolerating clear liquid. Had a small BM this AM. Abdomen still distended. Abdominal XR showws some air in the colon. Will repeat obstructive series in AM. NGT out. Objective - Vital Signs/Intake and Output Vital Signs (last 24 hours): Temp Pulse Resp BP Pulse Ox 98.2 F 57 L 20 188/81 H 97 06/30/16 16:42 06/30/16 16:42 06/30/16 16:42 06/30/16 16:42 06/30/16 16:42 Intake and Output: 06/30/16 06/30/16 06:59 18:59 Intake Total 2265 1200 Output Total 10 Balance 2255 1200 - Medications Medications: Current Medications Enoxaparin Sodium (Lovenox) 40 mg SC DAILY [facility] Last Admin: 06/30/16 09:01 Dose: 40 mg Ciprofloxacin (Cipro 400mg/200ml Dsw) 200 mls @ 133 mls/hr IVPB Q12H [facility] Last Admin: 06/30/16 09:12 Dose: 133 mls/hr Losartan Potassium (Cozaar) 50 mg PO DAILY [facility] Last Admin: 06/30/16 09:00 Dose: 50 mg Metoclopramide HCl (Reglan) 5 mg PO Q8H [facility] Last Admin: 06/30/16 13:43 Dose: 5 mg Metoprolol Tartrate (Lopressor) 50 mg PO Q12 [facility] Last Admin: 06/30/16 09:01 Dose: 50 mg Metronidazole (Flagyl) 500 mg PO Q8 [facility] Last Admin: 06/30/16 13:43 Dose: 500 mg Ondansetron HCl (Zofran Inj) 4 mg IVP Q4 PRN PRN Reason: Nausea/Vomiting Zolpidem Tartrate (Ambien) 5 mg PO HS PRN PRN Reason: Insomnia Last Admin: 06/26/16 22:53 Dose: 5 mg - Labs Labs: 06/30/16 07:49 06/30/16 07:49 - Constitutional Appears: No Acute Distress - Head Exam Head Exam: NORMAL INSPECTION - Eye Exam Eye Exam: Normal appearance - ENT Exam ENT Exam: Normal Exam - Neck Exam Neck Exam: Normal Inspection - Respiratory Exam Additional comments: Rhonchi at both bases. - Cardiovascular Exam Cardiovascular Exam: REGULAR RHYTHM - GI/Abdominal Exam GI & Abdominal Exam: Distended, Hypoactive Bowel Sounds - Rectal Exam Rectal Exam: Deferred - Extremities Exam Extremities Exam: Normal Inspection - Back Exam Back Exam: NORMAL INSPECTION - Neurological Exam Neurological Exam: Alert, Awake, Normal Gait, Oriented x3 - Psychiatric Exam Psychiatric exam: Anxious - Skin Skin Exam: Dry, Intact, Normal Color, Warm Assessment and Plan (1) Small bowel obstruction Assessment & Plan: Slowly improving. Status: Acute (2) Uncontrolled hypertension Assessment & Plan: To continue same meds. Status: Acute
[2016-07-01] MEDS: Ciprofloxacin 400mg/200ml D5W 200 ML IVPB SCH (08:27)
[2016-07-01] MEDS: Enoxaparin 40 mg Syringe SC SCH (09:46)
--- NOTE | 2016-07-01 15:43 | RAD ---
PROCEDURE: Radiographs of the chest and abdomen (obstructive series) HISTORY: SBO F/U COMPARISON: 2016, 06/30/2016. TECHNIQUE: AP radiograph of the chest, with upright and supine radiographs of the abdomen. FINDINGS: CHEST: Lungs: Linear atelectasis, scarring both lower lobes. Cardiovascular: Cardiomegaly. No evidence of acute, significant cardiovascular disease. Pleura: No pleural fluid. No pneumothorax. Other findings: None. ABDOMEN AND PELVIS: Bowel: Distention of colon and small bowel again identified, of pattern overall suggests ileus rather than obstruction. Free air: None. Bones: Unremarkable. 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 IMPRESSION: Negative study for obstruction or free air. Bowel gas pattern consistent with ileus rather than obstruction.
--- NOTE | 2016-07-01 17:31 | CP.PCM.PN ---
<Jennifer Weathers - Last Filed: 07/01/16 17:31> Subjective - Date & Time of Evaluation Date of Evaluation: 07/01/16 Time of Evaluation: 07:00 - Subjective Subjective: GENERAL SURGERY PROGRESS NOTE FOR DR. DOSHI Patient seen and examined at bedside. He denies abdominal pain. He is tolerating his diet and denies nausea or vomiting. He is passing flatus and had multiple BMs yesterday. Objective - Vital Signs/Intake and Output Vital Signs (last 24 hours): Temp Pulse Resp BP Pulse Ox 98.1 F 54 L 18 188/84 H 97 07/01/16 07:05 07/01/16 17:00 07/01/16 17:00 07/01/16 17:00 07/01/16 17:00 Intake and Output: 07/01/16 07/01/16 06:59 18:59 Intake Total 670 350 Output Total 600 Balance 70 350 - Medications Medications: Current Medications Ciprofloxacin (Cipro) 500 mg PO BID [facility] Enoxaparin Sodium (Lovenox) 40 mg SC DAILY [facility] Last Admin: 07/01/16 09:46 Dose: 40 mg Hydrochlorothiazide (Microzide) 12.5 mg PO DAILY [facility] Last Admin: 07/01/16 13:24 Dose: 12.5 mg Losartan Potassium (Cozaar) 100 mg PO DAILY [facility] Last Admin: 07/01/16 09:46 Dose: 100 mg Metoclopramide HCl (Reglan) 5 mg PO Q8H [facility] Last Admin: 07/01/16 13:24 Dose: 5 mg Metoprolol Tartrate (Lopressor) 50 mg PO Q12 [facility] Last Admin: 07/01/16 09:46 Dose: 50 mg Metronidazole (Flagyl) 500 mg PO Q8 [facility] Last Admin: 07/01/16 13:24 Dose: 500 mg Ondansetron HCl (Zofran Inj) 4 mg IVP Q4 PRN PRN Reason: Nausea/Vomiting Zolpidem Tartrate (Ambien) 5 mg PO HS PRN PRN Reason: Insomnia Last Admin: 06/26/16 22:53 Dose: 5 mg - Labs Labs: 06/30/16 07:49 06/30/16 07:49 - Constitutional Appears: Non-toxic, No Acute Distress - Head Exam Head Exam: ATRAUMATIC, NORMAL INSPECTION - Eye Exam Eye Exam: EOMI, Normal appearance - Respiratory Exam Respiratory Exam: NORMAL BREATHING PATTERN. absent: Respiratory Distress - Cardiovascular Exam Cardiovascular Exam: +S1, +S2 - GI/Abdominal Exam GI & Abdominal Exam: Soft. absent: Distended, Firm, Guarding, Rigid, Tenderness , Rebound - Neurological Exam Neurological Exam: Alert, Awake, Oriented x3 - Psychiatric Exam Psychiatric exam: Normal Affect, Normal Mood - Skin Skin Exam: Dry, Normal Color, Warm Assessment and Plan - Assessment and Plan (Free Text) Assessment: 80 yo M with partial SBO, now resolved - Encouraged ambulation - Tolerating diet, having BMs - No further surgical intervention necessary - Please re-consult as necessary - Discussed plan with Dr. Glenda Weathers PGY-2 <Abiodun Doshi - Last Filed: 07/07/16 10:22> Objective - Vital Signs/Intake and Output Vital Signs (last 24 hours): Temp Pulse Resp BP Pulse Ox 97.7 F 58 L 20 150/89 95 07/03/16 09:29 07/03/16 12:43 07/03/16 09:29 07/03/16 12:43 07/03/16 09:29 - Labs Labs: 07/03/16 07:58 07/03/16 07:58 Attending/Attestation - Attestation I have personally seen and examined this patient.: Yes I have fully participated in the care of the patient.: Yes I have reviewed all pertinent clinical information, including history, physical exam and plan: Yes Notes (Text): 07/07/16 10:21 Pt was seen and examined at bedside on 07/01/16 Agree with above note and assessment Pt with resolved PSBO F/U as out pt. Pt can be DC home Plan d.w pt in detail
--- NOTE | 2016-07-01 21:48 | CP.PCM.PN ---
Subjective - Date & Time of Evaluation Date of Evaluation: 07/01/16 Time of Evaluation: 21:41 - Subjective Subjective: Patient has no abdominal pain, no nausea, but abdomen still distended. Obstructive series revealed air in the colon, compatible with ileus. Will try Reglan 10 mg PO qid AC HS. Objective - Vital Signs/Intake and Output Vital Signs (last 24 hours): Temp Pulse Resp BP Pulse Ox 98.1 F 54 L 18 188/84 H 97 07/01/16 07:05 07/01/16 17:00 07/01/16 17:00 07/01/16 17:00 07/01/16 17:00 Intake and Output: 07/01/16 07/02/16 18:59 06:59 Intake Total 350 Balance 350 - Medications Medications: Current Medications Ciprofloxacin (Cipro) 500 mg PO BID [facility] Last Admin: 07/01/16 18:18 Dose: 500 mg Clonidine HCl (Catapres) 0.2 mg PO BID [facility] Enoxaparin Sodium (Lovenox) 40 mg SC DAILY [facility] Last Admin: 07/01/16 09:46 Dose: 40 mg Hydrochlorothiazide (Microzide) 12.5 mg PO DAILY [facility] Last Admin: 07/01/16 13:24 Dose: 12.5 mg Losartan Potassium (Cozaar) 100 mg PO DAILY [facility] Last Admin: 07/01/16 09:46 Dose: 100 mg Metoclopramide HCl (Reglan) 5 mg PO Q8H [facility] Last Admin: 07/01/16 21:35 Dose: 5 mg Metoprolol Tartrate (Lopressor) 50 mg PO Q12 [facility] Last Admin: 07/01/16 21:35 Dose: 50 mg Metronidazole (Flagyl) 500 mg PO Q8 [facility] Last Admin: 07/01/16 21:35 Dose: 500 mg Ondansetron HCl (Zofran Inj) 4 mg IVP Q4 PRN PRN Reason: Nausea/Vomiting Zolpidem Tartrate (Ambien) 5 mg PO HS PRN PRN Reason: Insomnia Last Admin: 06/26/16 22:53 Dose: 5 mg - Labs Labs: 06/30/16 07:49 06/30/16 07:49 - Constitutional Appears: No Acute Distress - Head Exam Head Exam: NORMAL INSPECTION - Eye Exam Eye Exam: Normal appearance - ENT Exam ENT Exam: Normal Exam - Neck Exam Neck Exam: Normal Inspection - Respiratory Exam Respiratory Exam: NORMAL BREATHING PATTERN Additional comments: Few ronchi bibasilarly. - Cardiovascular Exam Cardiovascular Exam: REGULAR RHYTHM - GI/Abdominal Exam GI & Abdominal Exam: Distended, Hypoactive Bowel Sounds - Rectal Exam Rectal Exam: Deferred - Extremities Exam Extremities Exam: Normal Inspection - Back Exam Back Exam: NORMAL INSPECTION - Neurological Exam Neurological Exam: Alert, Awake, Oriented x3 - Psychiatric Exam Psychiatric exam: Anxious - Skin Skin Exam: Dry, Intact, Normal Color, Warm Assessment and Plan (1) Small bowel obstruction Assessment & Plan: Partial SMO resolved. Try Reglan 10 mg PO qid Ac and HS. Status: Acute (2) Uncontrolled hypertension Assessment & Plan: Add Clonidine 0.2 mg PO BID. Status: Acute
[2016-07-02 08:27] VITALS: RESP 20
[2016-07-02] MEDS: Enoxaparin 40 mg Syringe SC SCH (11:11)
--- NOTE | 2016-07-02 19:40 | CP.PCM.PN ---
Subjective - Date & Time of Evaluation Date of Evaluation: 07/02/16 Time of Evaluation: 19:37 - Subjective Subjective: Patient has no BM today, but passed flatus. No nausea, no abdominal pain, but the abdomen remains distended, and his BP is still very elevated ( 190/90 ). Complaining of dizziness with Clonidine. Objective - Vital Signs/Intake and Output Vital Signs (last 24 hours): Temp Pulse Resp BP Pulse Ox 97.6 F 50 L 20 171/83 H 94 L 07/02/16 08:26 07/02/16 16:00 07/02/16 12:21 07/02/16 12:55 07/02/16 12:21 Intake and Output: 07/02/16 07/03/16 18:59 06:59 Intake Total 450 Balance 450 - Medications Medications: Current Medications Ciprofloxacin (Cipro) 500 mg PO BID [facility] Last Admin: 07/02/16 17:30 Dose: 500 mg Clonidine HCl (Catapres) 0.2 mg PO BID [facility] Last Admin: 07/02/16 17:30 Dose: 0.2 mg Enoxaparin Sodium (Lovenox) 40 mg SC DAILY [facility] Last Admin: 07/02/16 11:11 Dose: 40 mg Hydrochlorothiazide (Microzide) 12.5 mg PO DAILY [facility] Last Admin: 07/02/16 11:18 Dose: 12.5 mg Losartan Potassium (Cozaar) 100 mg PO DAILY [facility] Last Admin: 07/02/16 11:12 Dose: 100 mg Metoclopramide HCl (Reglan) 5 mg PO Q8H [facility] Last Admin: 07/02/16 13:38 Dose: 5 mg Metoprolol Tartrate (Lopressor) 50 mg PO Q12 [facility] Metronidazole (Flagyl) 500 mg PO Q8 [facility] Last Admin: 07/02/16 13:38 Dose: 500 mg Ondansetron HCl (Zofran Inj) 4 mg IVP Q4 PRN PRN Reason: Nausea/Vomiting Zolpidem Tartrate (Ambien) 5 mg PO HS PRN PRN Reason: Insomnia Last Admin: 06/26/16 22:53 Dose: 5 mg - Labs Labs: 06/30/16 07:49 06/30/16 07:49 - Constitutional Appears: No Acute Distress - Head Exam Head Exam: NORMAL INSPECTION - Eye Exam Eye Exam: Normal appearance - ENT Exam ENT Exam: Normal Exam - Neck Exam Neck Exam: Normal Inspection - Respiratory Exam Additional comments: Few rhonchi heard at both bases. - Cardiovascular Exam Cardiovascular Exam: REGULAR RHYTHM - GI/Abdominal Exam GI & Abdominal Exam: Distended, Hypoactive Bowel Sounds - Rectal Exam Rectal Exam: Deferred - Extremities Exam Extremities Exam: Normal Inspection - Back Exam Back Exam: NORMAL INSPECTION - Neurological Exam Neurological Exam: Alert, Awake, Normal Gait, Oriented x3 - Psychiatric Exam Psychiatric exam: Anxious - Skin Skin Exam: Dry, Intact, Normal Color, Warm Assessment and Plan (1) Small bowel obstruction Assessment & Plan: Stools cultures and stools for toxins C. Difficile pending. To continue IV Cipro and Flagyl for an enteritis with severe ileus. Status: Resolved (2) Uncontrolled hypertension Assessment & Plan: Try Ativan for anxiety, and increase Clonidine 0.2 mg PO TID. Status: Acute
[2016-07-03 08:06] LABS: BASO % 0.4 % (0.0-2.0); EOS # 0.3 K/uL (0.0-0.7); EOS % 5.5 % (0.0-4.0); HEMATOCRIT 35.8 % (35.0-51.0); LYMPH # 2.4 K/uL (1.0-4.3); LYMPH % 47.5 % (20.0-40.0); MEAN CELL VOLUME 83.4 fL (80.0-94.0); MEAN CORPUSCULAR HEMOGLOBIN 26.8 pg (27.0-31.0); MEAN CORPUSCULAR HGB CONC 32.1 g/dL (33.0-37.0); MEAN PLATELET VOLUME 7.7 fL (7.2-11.7); MONO # 0.5 K/uL (0.0-0.8); MONO % 9.4 % (0.0-10.0); NRBC % 0.1 % (0.0-2.0); RED CELL DISTRIBUTION WIDTH 14.3 % (11.5-14.5)
[2016-07-03 08:13] LABS: CHLORIDE 98 mmol/L (98-107); POTASSIUM 3.7 mmol/L (3.6-5.2); SODIUM 137 mmol/L (132-148)
[2016-07-03 08:15] LABS: BILIRUBIN,TOTAL 0.3 mg/dL (0.2-1.3); CARBON DIOXIDE 28 mmol/L (22-30); GFR AFRICAN-AMERICAN > 60
[2016-07-03 08:16] LABS: ALB/GLOB RATIO 1.3 (1.0-2.1); ALKALINE PHOSPHATASE 42 U/L (38-126); ALT/SGPT 54 U/L (21-72); AST/SGOT 50 U/L (17-59); BLOOD UREA NITROGEN 10 mg/dL (9-20); CALCIUM 8.6 mg/dl (8.6-10.4); GLUCOSE,RANDOM 87 mg/dL (75-110); TOTAL PROTEIN 6.1 g/dL (6.3-8.3)
[2016-07-03 09:30] VITALS: TEMP 97.7; O2SAT 95
[2016-07-03] MEDS: Enoxaparin 40 mg Syringe SC SCH (11:26)
[2016-07-03] MEDS ORDERED: Aluminum Hydroxide/Magnesium Hydroxide Susp (30 mL) PO ONE (12:15)
[2016-07-03 12:44] VITALS: BP 150/89; PULSE 58
--- NOTE | 2016-07-03 18:51 | CP.PCM.PN ---
Subjective - Date & Time of Evaluation Date of Evaluation: 07/03/16 Time of Evaluation: 13:00 - Subjective Subjective: Patient had a normal BM this AM. Tolerated soft diet well. Denies nausea, abdominal pain. BP: 145/80. HR: 55 bpm Afebrile CBC and CMP: WNL. Stools for C Difficile: negative. Abdomen soft, non tender, BS normal. Will discharge home today. Objective - Vital Signs/Intake and Output Vital Signs (last 24 hours): Temp Pulse Resp BP Pulse Ox 97.7 F 58 L 20 150/89 95 07/03/16 09:29 07/03/16 12:43 07/03/16 09:29 07/03/16 12:43 07/03/16 09:29 Intake and Output: 07/03/16 07/03/16 06:59 18:59 Intake Total 250 450 Balance 250 450 - Labs Labs: 07/03/16 07:58 07/03/16 07:58 - Constitutional Appears: No Acute Distress - Head Exam Head Exam: NORMAL INSPECTION - Eye Exam Eye Exam: Normal appearance - ENT Exam ENT Exam: Normal Exam - Neck Exam Neck Exam: Normal Inspection - Respiratory Exam Additional comments: Few rhonchi at both bases. - Cardiovascular Exam Cardiovascular Exam: REGULAR RHYTHM - GI/Abdominal Exam GI & Abdominal Exam: Soft, Normal Bowel Sounds - Rectal Exam Rectal Exam: Deferred - Exam Exam: NORMAL INSPECTION - Extremities Exam Extremities Exam: Normal Inspection - Back Exam Back Exam: NORMAL INSPECTION - Neurological Exam Neurological Exam: Alert, Awake, Normal Gait, Oriented x3 - Psychiatric Exam Psychiatric exam: Anxious - Skin Skin Exam: Dry, Intact, Normal Color, Warm Assessment and Plan (1) Uncontrolled hypertension Status: Resolved
--- NOTE | 2016-07-03 19:11 | CP.PCM.DIS ---
Provider - Provider Date of Admission: 06/24/16 19:01 Attending physician: Jcarlos Hernández MD Primary care physician: Jcarlos Hernández M.D. Consults: Dr Loza, Dr Minor. Time Spent in preparation of Discharge (in minutes): 30 Hospital Course - Lab Results Lab Results: Most Recent Lab Values WBC 5.0 K/uL (4.8-10.8) 07/03/16 07:58 RBC 4.30 Mil/uL (4.40-5.90) L 07/03/16 07:58 Hgb 11.5 g/dL (12.0-18.0) L 07/03/16 07:58 Hct 35.8 % (35.0-51.0) 07/03/16 07:58 MCV 83.4 fL (80.0-94.0) 07/03/16 07:58 MCH 26.8 pg (27.0-31.0) L 07/03/16 07:58 MCHC 32.1 g/dL (33.0-37.0) L 07/03/16 07:58 RDW 14.3 % (11.5-14.5) 07/03/16 07:58 Plt Count 340 K/uL (130-400) 07/03/16 07:58 MPV 7.7 fL (7.2-11.7) 07/03/16 07:58 Neut % (Auto) 37.2 % (50.0-75.0) L 07/03/16 07:58 Lymph % (Auto) 47.5 % (20.0-40.0) H 07/03/16 07:58 Graham % (Auto) 9.4 % (0.0-10.0) 07/03/16 07:58 Eos % (Auto) 5.5 % (0.0-4.0) H 07/03/16 07:58 Baso % (Auto) 0.4 % (0.0-2.0) 07/03/16 07:58 Neut # 1.9 K/uL (1.8-7.0) 07/03/16 07:58 Lymph # 2.4 K/uL (1.0-4.3) 07/03/16 07:58 Graham # 0.5 K/uL (0.0-0.8) 07/03/16 07:58 Eos # 0.3 K/uL (0.0-0.7) 07/03/16 07:58 Baso # 0.0 K/uL (0.0-0.2) 07/03/16 07:58 Sodium 137 mmol/L (132-148) 07/03/16 07:58 Potassium 3.7 mmol/L (3.6-5.2) 07/03/16 07:58 Chloride 98 mmol/L (98-107) 07/03/16 07:58 Carbon Dioxide 28 mmol/L (22-30) 07/03/16 07:58 Anion Gap 15 (10-20) 07/03/16 07:58 BUN 10 mg/dL (9-20) 07/03/16 07:58 Creatinine 1.2 MG/DL (0.8-1.5) 07/03/16 07:58 Est GFR ( Amer) > 60 07/03/16 07:58 Est GFR (Non-Af Amer) 58 07/03/16 07:58 Random Glucose 87 mg/dL (75-110) 07/03/16 07:58 Lactic Acid 1.4 mmol/L (0.7-2.1) 06/25/16 11:09 Calcium 8.6 mg/dl (8.6-10.4) 07/03/16 07:58 Ionized Calcium 5.0 mg/dL (4.80-5.60) 06/30/16 07:49 Phosphorus 3.2 mg/dL (2.5-4.5) 06/27/16 08:04 Magnesium 2.0 mg/dL (1.6-2.3) 06/27/16 08:04 Total Bilirubin 0.3 mg/dL (0.2-1.3) 07/03/16 07:58 AST 50 U/L (17-59) 07/03/16 07:58 ALT 54 U/L (21-72) 07/03/16 07:58 Alkaline Phosphatase 42 U/L (38-126) 07/03/16 07:58 Total Protein 6.1 g/dL (6.3-8.3) L 07/03/16 07:58 Albumin 3.4 g/dL (3.5-5.0) L 07/03/16 07:58 Globulin 2.7 gm/dL (2.2-3.9) 07/03/16 07:58 Albumin/Globulin Ratio 1.3 (1.0-2.1) 07/03/16 07:58 Lipase 52 U/L (23-300) 06/24/16 16:37 Free T4 0.86 ng/dL (0.78-2.19) 06/24/16 16:37 TSH 3rd Generation 1.14 mIU/L (0.46-4.68) 06/24/16 16:37 PTH Intact Whole Molec 73 pg/mL (14-64) H 06/29/16 17:31 Urine Color Chloe (YELLOW) 06/24/16 16:37 Urine Clarity Hazy (Clear) 06/24/16 16:37 Urine pH 5.0 (5.0-8.0) 06/24/16 16:37 Ur Specific [place] 1.031 (1.003-1.030) H 06/24/16 16:37 Urine Protein 2+ mg/dL (NEGATIVE) H 06/24/16 16:37 Urine Glucose (UA) Normal mg/dL (Normal) 06/24/16 16:37 Urine Ketones Trace mg/dL (NEGATIVE) 06/24/16 16:37 Urine Blood 1+ (NEGATIVE) H 06/24/16 16:37 Urine Nitrate Negative (NEGATIVE) 06/24/16 16:37 Urine Bilirubin Negative (NEGATIVE) 06/24/16 16:37 Urine Urobilinogen 2.0 mg/dL (0.2-1.0) 06/24/16 16:37 Ur Leukocyte Esterase Neg Bernabe/uL (Negative) 06/24/16 16:37 Urine WBC (Auto) 4 /hpf (0-5) 06/24/16 16:37 Urine RBC (Auto) 9 /hpf (0-3) H 06/24/16 16:37 Ur Squamous Epith Cells < 1 /hpf (0-5) 06/24/16 16:37 Calcium Oxalate Crystal Few /hpf (<OCC) H 06/24/16 16:37 Urine Bacteria Rare (<OCC) 06/24/16 16:37 Hyaline Casts 6-10 /lpf (0-2) H 06/24/16 16:37 C. difficile Ag & Toxin Negative (NEGATIVE) 07/02/16 Unknown - Hospital Course Hospital Course: 80 years old male was sent to the ED by PMD complaining of diffuse abdominal pain and distention. He was seen in the ED 2 days before for a diarrhea, and nausea, and was sent home. This time, a CT scan of the abdomen revealed dilated small bowel loops and no gas in the colon, compatible with an acute small bowel obstruction. Because, he was still able to pass flatus, a trial of medical management with insertion of a NGT and LIS, enemas, Reglan was instituded. The patient kept passing small amounts of stools and a lot of flatus the following days. He was also put on IV Cipro and IV Flagyl. His BP was difficult to control because most BP medications exacerbated intestinal ileus. The BP was finally controlled with Metoprolol, Losartan, Clonidine and Lorazepam. His abdominal distention gradually improved. Follow-up abdominal obstructive series finally showed air in the colon. NGT was removed, and trial of clear liquid diet was tried. He tolerated soft diet. Stools for c.difficile toxin were negative. He was discharged home on 07/03/2016. - Date & Time of H&P Date of H&P: 06/24/16 Discharge Exam - Head Exam Head Exam: NORMAL INSPECTION - Eye Exam Eye Exam: Normal appearance - ENT Exam ENT Exam: Normal Exam - Neck Exam Neck exam: Normal Inspection - Respiratory Exam Additional comments: Few rhonchi at both bases. - Cardiovascular Exam Cardiovascular Exam: REGULAR RHYTHM - GI/Abdominal Exam GI & Abdominal Exam: Normal Bowel Sounds - Rectal Exam Rectal Exam: Deferred - Extremities Exam Extremities exam: normal inspection - Back Exam Back exam: NORMAL INSPECTION - Neurological Exam Neurological exam: Alert, CN II-XII Intact, Normal Gait, Oriented x3 - Psychiatric Exam Psychiatric exam: Anxious - Skin Skin Exam: Dry, Normal Color, Warm Discharge Plan - Discharge Medications Prescriptions: LORazepam [Ativan] 0.5 mg PO BID #30 tab cloNIDine [Catapres] 0.2 mg PO TID #60 tab Losartan [Cozaar] 100 mg PO DAILY #90 tab Metoclopramide [Reglan] 5 mg PO ACHS #40 tab - Follow Up Plan Condition: STABLE Disposition: HOME/ ROUTINE Instructions: Clonidine (By mouth), Metoclopramide (By mouth), Losartan (By mouth), Bowel Obstruction (GEN) Referrals: Jcarlos Hernández MD [Staff Provider] - Clinical Quality Measures - CQM - Heart Failure Follow Up Date (must be within 7 days from discharge): 07/10/16 Follow Up Time: 14:00 - Date & Time of Discharge Summary Date of Discharge Summary: 07/03/16 Time of Discharge Summary: 19:11
== END 2016-07-03 14:46 | disposition home or self-care (01) | DRG 390 ==
LOC: C.ER 15:01 → C.9E 19:01 → C.3T 20:49 → C.5T 06-30 20:27
PROVIDERS: ADMIT Internal Medicine Cardiovascular Disease; ATTEND Internal Medicine Cardiovascular Disease
DX: K56.7 Ileus, unspecified (principal); K52.89 Other specified noninfective gastroenteritis and colitis; I10 Essential (primary) hypertension; E03.9 Hypothyroidism, unspecified; Z85.46 Personal history of malignant neoplasm of prostate; H81.01 Meniere's disease, right ear; E87.6 Hypokalemia